=== PATIENT | female | born 1965 | race Caucasian/White ===

== ENCOUNTER → 2018-08-03 09:09 | Outpatient (CLI) | payer MEDICAID, SELFPAY ==
--- NOTE | 2018-08-03 09:16 | US_ITS ---
US abdomen limited History:Pain, right upper quadrant pain nausea and vomiting Ordering Physician:Miroslava Rodriguez APRN Patient Age: 53 years Comparison:None Findings: Pancreas:Poorly demonstrated due to overlying bowel gas. CT may better evaluate. Liver:Unremarkable. No obvious mass or abnormal fluid collection. No ductal dilatation Right Kidney:Unremarkable. Normal size and echogenicity. No hydronephrosis Gallbladder:No gallstones, gallbladder wall thickening, pericholecystic fluid, or biliary dilatation. Impression:Negative gallbladder/right upper quadrant ultrasound Poor visualization of the pancreas
== END ==
PROVIDERS: PCP Internal Medicine Adolescent Medicine; Visit Provider Nurse Practitioner Family
DX: R10.11 Right upper quadrant pain (principal)
CPT/HCPCS: 76705

== ENCOUNTER → 2020-12-07 14:09 | Outpatient (CLI) | payer OTHER, SELFPAY ==
--- NOTE | 2020-12-07 14:34 | MM_ITS ---
PROCEDURE INFORMATION: Exam: MG Bilateral Screening 3D Mammography Exam date and time: 12/07/2020 2:34 PM Age: 55 years old Clinical indication: Encounter for screening mammogram for malignant neoplasm of breast TECHNIQUE: Imaging protocol: Bilateral screening tomosynthesis and 2D mammography including computer-aided detection (CAD) when performed. COMPARISON: No relevant prior studies available. FINDINGS: MAMMOGRAPHY: Breast composition: The breast tissue is composed of scattered areas of fibroglandular density. Mass: None. Architectural distortion: None. Calcifications: No suspicious calcifications. Asymmetric density: None. Skin thickening: None. Axillary adenopathy: None. IMPRESSION: No mammographic evidence of malignancy. Annual screening is recommended unless otherwise clinically indicated. ASSESSMENT: BI-RADS Category 1: Negative
--- NOTE | 2020-12-07 14:34 | CT_ITS ---
PROCEDURE: CT LUNG SCREENING CLINICAL INDICATION: H/O NICOTINE DEPENDENCE COMPARISON: No exams were available for comparison TECHNIQUE: The exam was performed on a GE Light Speed [address] scanner using 2.90 mGy CTDI. A low dose helical CT CHEST was performed on a multi-detector scanner. All CT scans at the facility use one or more dose reduction, viz: automated exposure control, ma/kV adjustment per patient size (including targeted exams where dose is matched to indication, i.e. head), or iterative reconstruction technique. The LDCT was performed in a facility that meets the criteria for the screening program. Data regarding this exam was submitted to ACR which is an approved registry. The order for this exam indicates that it came as a result of a lung cancer screening counseling shard decision-making visit that included all the elements required of such a visit including smoking cessation. The radiologist interpreting this exam meets the CMS criteria for the LDCT lung cancer screening program. The exam is reported using the Lung-RADS classification scale and reported to the ACR registry. NOTE: This study was performed for the specific purposes of lung cancer screening and is not an alternative to diagnostic chest CT. RADIATION DOSE: CTDI vol(CT dose Index-volume) = 2.90mG DLP (Dose Length Product) = 96.38 mGcm FINDINGS: COPD changes atelectatic changes versus scarring in the right lower lobe centrally and inferiorly. OTHER FINDINGS: Coronary artery calcification. Mild thickening of the pericardium anteriorly measuring 10 mm in thickness. 2 cm left adrenal nodule consistent with adenoma IMPRESSION: Lung-RADS Category 1 Negative Follow-up: Continue annual screening with LDCT in 12 months Dictated by: Obey Bhandari MD 12/25/2020 19:35 Obey Bhandari MD in [place] 12/25/2020 19:35
== END ==
PROVIDERS: PCP Internal Medicine Adolescent Medicine; Visit Provider Nurse Practitioner Family
DX: Z87.891 Personal history of nicotine dependence (principal); Z12.2 Encounter for screening for malignant neoplasm of respiratory organs; Z12.31 Encounter for screening mammogram for malignant neoplasm of breast
CPT/HCPCS: 71271; 77063; 77067

== ENCOUNTER → 2020-12-17 09:40 | Outpatient (CLI) | payer OTHER, SELFPAY ==
[2020-12-17 10:11] LABS: Basophils # 0.1 K/mm3 (0-0.2); Basophils % 0.8 % (0.1-2.0); Eosinophils # 0.3 K/mm3 (0.0-0.4); Eosinophils % 2.9 % (0.1-12.0); Hematocrit 44.7 % (37.0-47.0); Hemoglobin 14.6 g/dL (12.2-16.2); Lymphocytes # 2.3 K/mm3 (0.7-4.5); Lymphocytes % 20.4 % (10-50); Mean Corpuscular HGB Conc 32.6 g/dL (31.8-35.4); Mean Corpuscular Hemoglobin 30.4 pg (27.0-31.2); Mean Corpuscular Volume 93.1 fl (81-99); Mean Platelet Volume 9.3 fl (7.4-10.4); Monocytes # 0.8 K/mm3 (0.1-1.0); Monocytes % 6.7 % (1.7-9.3); Neutrophils # 7.9 K/mm3 (1.8-7.8); Neutrophils % 69.3 % (37.0-80.0); Platelet Count 299 K/mm3 (142-424); Red Cell Distribution Width 14.4 % (11.5-17.5); White Blood Count 11.4 K/mm3 (4.8-10.8)
[2020-12-17 10:25] LABS: Hemoglobin A1C 5.8 % (4.0-6.0)
[2020-12-17 10:40] LABS: Chloride 102 mmol/L (98-107); Sodium 139 mmol/L (136-145)
[2020-12-17 10:41] LABS: Potassium 4.1 mmoL/L (3.5-5.1)
[2020-12-17 10:43] LABS: Alanine Aminotransferase 12 U/L (12-78); Albumin/Globulin Ratio 1.5 (1.1-1.8); Alkaline Phosphatase 96 U/L (38-126); Anion Gap 10.1 mEq/L (5-15); Aspartate Amino Transferase 20 U/L (14-36); Bilirubin,Total 0.3 mg/dl (0.2-1.3); Blood Urea Nitrogen 8 mg/dl (7-17); Calcium 9.8 mg/dl (8.4-10.2); Carbon Dioxide 31 mmol/L (22.0-30.0); Chol/HDL Ratio 4.7 (1-3.5); Cholesterol 300 mg/dl (140-200); Estimated Glomerular Filt Rate 65 ml/min (>60); GFR (African American) 79 ML/MIN (>60); Globulin 2.7 g/dL (1.3-3.2); Glucose 115 mg/dl (74-100); HDL Cholesterol 64 mg/dl (40-60); Total Protein,Serum 6.7 g/dl (6.3-8.2); Triglycerides 140 mg/dl (30-150); VLDL Cholesterol 28 mg/dL (0-40)
[2020-12-17 10:53] LABS: Direct LDL Cholesterol 195.83 mg/dL (100-129)
[2020-12-17 11:31] LABS: Vitamin B12 431 pg/mL (239-931)
[2020-12-19 12:32] LABS: Free T4 (Free Thyroxine) 0.52 ng/dl (0.78-2.19)
== END ==
PROVIDERS: Nurse Practitioner Family; Visit Provider Surgery
DX: Z01.812 Encounter for preprocedural laboratory examination (principal); Z11.52 Encounter for screening for COVID-19; I10 Essential (primary) hypertension; E78.2 Mixed hyperlipidemia; R73.9 Hyperglycemia, unspecified; E03.9 Hypothyroidism, unspecified; E53.8 Deficiency of other specified B group vitamins; E55.9 Vitamin D deficiency, unspecified
CPT/HCPCS: 36415; 80053; 80061; 82306; 82607; 83036; 84439; 84443; 85025; C9803; U0003; U0005

== ENCOUNTER → 2022-05-22 14:51 | Outpatient (CLI) | payer OTHER, SELFPAY ==
--- NOTE | 2022-05-22 14:56 | CT_ITS ---
FINAL REPORT TECHNIQUE: Axial CT images of the chest were obtained without contrast. Low-dose protocol was utilized. This study was performed with techniques to keep radiation doses as low as reasonably achievable (ALARA). Individualized dose reduction techniques using automated exposure control or adjustment of mA and/or kV according to the patient's size were employed. CLINICAL HISTORY: currently smokes 1/2 pk per day x 29 yrs COMPARISON: 12/07/2020 FINDINGS: CT CHEST WITHOUT, LOW DOSE SCREENING CT Di Vol: 2.90 mGy DLP: 102.90 mGy*cm There is no axillary, mediastinal, or hilar lymphadenopathy. The heart size is normal. There is no pleural or pericardial effusion. The lung windows show no suspicious mass or nodule. The there is linear scarring in the right lung base. The lungs are otherwise clear. Limited images of the upper abdomen demonstrate a stable 2 cm hypodense left adrenal nodule. IMPRESSION: LR Category 1S: 12 month follow-up low-dose chest CT is recommended. Modifier S: Left adrenal nodule, stable and favor adenoma. Reviewed, Interpreted and Dictated by Ami Alaniz MD Transcribed by Alyson Ramsey Authenticated and [facility]
--- NOTE | 2022-05-22 14:56 | MM_ITS ---
PROCEDURE INFORMATION: Exam: MG Bilateral Screening 3D Mammography Exam date and time: 05/22/2022 3:07 PM Age: 57 years old Clinical indication: Screening mammogram TECHNIQUE: Imaging protocol: Bilateral Screening tomosynthesis and 2D mammography including computer-aided detection (CAD) when performed. COMPARISON: 1. MG MM DIG SCREENING MAMM BI W/CAD 12/07/2020 2:58 PM 2. MG DMSB DIGITAL MAMM-SCREEN BILATERAL 04/17/2011 1:52 PM FINDINGS: MAMMOGRAPHY: Breast composition: There are scattered areas of fibroglandular density. Mass: None. Architectural distortion: No new or suspicious architectural distortion. Calcifications: No new or suspicious calcifications are present Asymmetric density: No new or suspicious asymmetric density is present Skin thickening: None. Axillary adenopathy: None. IMPRESSION: No mammographic evidence of malignancy. Recommend annual screening mammography unless otherwise clinically indicated. ASSESSMENT: BI-RADS category 1: Negative
== END ==
PROVIDERS: PCP Internal Medicine Adolescent Medicine; Visit Provider Nurse Practitioner Family
DX: Z87.891 Personal history of nicotine dependence (principal); Z12.2 Encounter for screening for malignant neoplasm of respiratory organs; Z12.31 Encounter for screening mammogram for malignant neoplasm of breast
CPT/HCPCS: 71271; 77063; 77067

== ENCOUNTER → 2022-07-23 11:42 | Outpatient (CLI) | payer OTHER, SELFPAY ==
--- NOTE | 2022-07-23 11:49 | XR_ITS ---
FINAL REPORT CLINICAL HISTORY: Rt foot pain COMPARISON: None FINDINGS: RIGHT FOOT 3 views of the right foot were obtained. There is no acute fracture or dislocation. Visualized joint spaces are normally aligned. Soft tissues are unremarkable. IMPRESSION: No acute bony abnormality. Reviewed, Interpreted and Dictated by Daniel Escalante MD Transcribed by Samantha Domínguez Authenticated and [facility]
--- NOTE | 2022-07-23 11:49 | XR_ITS ---
FINAL REPORT CLINICAL HISTORY: Rt ankle pain COMPARISON: None FINDINGS: RIGHT ANKLE 3 views of the right ankle were obtained. There is no acute fracture or dislocation. The mortise is intact. Visualized joint spaces are normally aligned. Soft tissues are unremarkable. IMPRESSION: No acute bony abnormality. Reviewed, Interpreted and Dictated by Daniel Escalante MD Transcribed by Samantha Domínguez Authenticated and [facility]
== END ==
PROVIDERS: PCP Nurse Practitioner Family; Visit Provider Nurse Practitioner Family
DX: M79.671 Pain in right foot (principal); M25.571 Pain in right ankle and joints of right foot; M25.371 Other instability, right ankle
CPT/HCPCS: 73610; 73630

== ENCOUNTER → 2022-11-11 12:19 | Outpatient (CLI) | payer OTHER, SELFPAY ==
[2022-11-11 13:19] LABS: Chloride 107 mmol/L (98-107); Sodium 139 mmol/L (136-145)
[2022-11-11 13:20] LABS: Potassium 4.2 mmoL/L (3.5-5.1)
[2022-11-11 13:23] LABS: Anion Gap 11.2 mEq/L (5-15); Blood Urea Nitrogen 19 mg/dl (7-17); Calcium 9.4 mg/dl (8.4-10.2); Carbon Dioxide 25 mmol/L (22.0-30.0); Estimated Glomerular Filt Rate 57 ml/min (>60); GFR (African American) 69 ML/MIN (>60); Glucose 106 mg/dl (74-100)
== END ==
PROVIDERS: PCP Internal Medicine Adolescent Medicine; Visit Provider Specialist
DX: G43.909 Migraine, unspecified, not intractable, without status migrainosus (principal); I63.9 Cerebral infarction, unspecified; Z86.39 Personal history of other endocrine, nutritional and metabolic disease; Z86.73 Personal history of transient ischemic attack (TIA), and cerebral infarction without residual deficits
CPT/HCPCS: 36415; 80048

== ENCOUNTER → 2022-11-14 12:51 | Outpatient (CLI) | payer OTHER, SELFPAY ==
--- NOTE | 2022-11-14 12:51 | MR_ITS ---
FINAL REPORT CLINICAL HISTORY: MIGRAINE off balance , dizziness, hx of stroke 13 ml prohance given FINDINGS: Multiplanar MR imaging of the brain was performed without and with contrast. There is abnormal signal in the anterior/inferior right occipital lobe which may be due to sequela of old infarct. There is no evidence of intracranial hemorrhage or mass. No abnormal extra-axial fluid collection is seen. The ventricular size is within normal limits. There is no evidence of shift of the midline structures. No area of abnormal restricted diffusion is identified. No abnormal contrast enhancement is seen. Normal major vessel vascular flow voids are noted. IMPRESSION: Encephalomalacia in the anterior/inferior right occipital lobe, may be due to sequela of old infarct. Reviewed, Interpreted and Dictated by Daniel Escalante MD Transcribed by Jodi Hughes Authenticated and [facility]
== END ==
PROVIDERS: PCP Nurse Practitioner Family; Visit Provider Specialist
DX: G43.909 Migraine, unspecified, not intractable, without status migrainosus (principal); Z86.73 Personal history of transient ischemic attack (TIA), and cerebral infarction without residual deficits
CPT/HCPCS: 70553; A9576

== ENCOUNTER 2023-01-06 14:00 | Outpatient (RCR) | payer OTHER, SELFPAY | END 2023-01-06 15:10 | disposition home or self-care (01) | LOC: OT 14:00 | PROVIDERS: Visit Provider Specialist | DX: G56.03 Carpal tunnel syndrome, bilateral upper limbs (principal); Z86.73 Personal history of transient ischemic attack (TIA), and cerebral infarction without residual deficits | CPT/HCPCS: 97010; 97014; 97035; 97110; 97140; 97164; 97165; 97530; G0283 ==

== ENCOUNTER 2023-01-08 11:00 | Outpatient (RCR) | payer OTHER, SELFPAY ==
--- NOTE | 2022-11-11 15:26 | HMH.PTOPEV ---
PT Outpatient Evaluation Rehab PT Outpatient Evaluation Start: 11/11/22 14:09 Freq: Status: Active Protocol: Document 11/11/22 15:08 PHORNE (Rec: 11/11/22 15:26 PHORNE [id number]) E-signed By Kendell Lawler, PT Outpatient Therapy Subjective History Subjective History This is the initial PT eval for Alayna eLe, 57 yowf who presents with c/o increased symptoms of vertigo, specifically turning head to the left or laying on her left side, and decreased dynamic balance, specifically with stairs, x ~ 6 yrs after CVA. Neurologist note reports likely posterior R side CVA with deficits in the occipital lobe among other areas. She does suffer from visual field cut since her CVA, effecting the L eye lateral vision most significantly. She reports ascending/descending stairs is extremely difficult and she has to hold on to something or someone or I can't do it. She reports the turning to her head to the L side and laying on her L side produce a quick onset vertigo sensation last ~ 15 sec. During Enrike-Hallpike testing she exhibits upbeating ipsilateral torsional nystagmus with L side testing. She has PMH of CVA, HTN, hypothyroid, histoplasmosis, basal cell CA, hx of narcotic abuse, migraines. New diagnosis of cancer in past 12 Yes months? Chief Complaint Other Symptoms Relieved By Rest/Positioning Symptoms Aggravated By Physical Activity,Walking Prior Functional Limitations None Current Functional Limitations Walking,Stairs Level of pain today (0-10) 0 Balance Eval Nystagmus Nystagmus Presence Bilateral Nystagmus Description Geotropic,Left Torsion,Latency - Immediate Oculomotor Gaze Oculomotor Gaze Nml: Vergence Smooth Pursuit Cover/Uncover Abn: Saccades VOR Cancellation Cross Cover Outpatient Therapy Assessment Impairments Problems/Impairmments Impaired Stair Climbing, Impaired Incline Stepping, Impaired Stepping on Uneven Surface,Impaired Balance, Impaired Self Care/Self Management Prognosis Rehab Potential Good Clinical Impression Consistent with Diagnosis Yes Short Term Goals Number of Weeks 2 Improve Ability to Climb Stairs Yes: reciprocally with rail Improve Balance Yes: No dizziness with head turning during standing. Patient to be Ind w/ HEP Yes Jail Goals Number of Weeks 4 Improve Ability to Climb Stairs Yes: reciprocally without LOB Improve Balance Yes: No dizziness with head turning during gait. Improve Self Care/Self Management Yes: No nystagmus with Enrike- Hallpike testing Outpatient Therapy Plan of Care Treatment Plan May Include Therapeutic Exercise Including Home Yes Exercise Program Manual Therapy Techniques Yes Neuromuscular Re-education Yes Therapeutic Activities to Return to Yes Previous Functional/Work Level Gait Training Yes ADL/Self Care Education Yes Eval/Re-Eval Yes Frequency Times per week 2 Duration Number of Weeks 4 Addendums This patient is a candidate for social No or vocational rehab? Patient/Guardian verbally acknowledges Yes understanding of treatment program and consents to further treatment? Patient/Guardian verbally acknowledges Yes understanding of diagnosis, prognosis and goals for treatment? Eval Complexity PT Charges 27509 - High Complexity Shoulder/Elbow Eval Shoulder Objective Measurements Elbow Objective Measurements PHYSICIAN CERTIFICATION: I certify the specified therapy services for Alayna Lee are required, authorized, and reviewed every 30 days.
--- NOTE | 2022-12-10 10:11 | HMH.RHREAS ---
Rehab Reassessment Rehab OP Re-assessment Start: 11/11/22 14:09 Freq: Status: Active Protocol: Document 12/10/22 09:43 PHORNE (Rec: 12/10/22 10:10 PHORNE [id number]) E-signed By Kendell Lawler, PT Rehab Re-assessment Subjective Subjective Pt reports, I don't get dizzy when I turn my head to the left anymore. I still just feel really off balance a lot though. Objective Objective Notes Enrike-Hallpike: L side positive upbeating and ipsilateral torsional nystagmus with delayed onset and lasting ~ 15 sec with associated pt reports of increased dizziness . Stairs: Pt remains unable to perform reciprocal ascending/ descending of stairs due to feeligns of poor balance. Assessment Progress Assessment Slower Than Expected Assessment Notes Pt has shown significant improvements in overall feelings of vertigo/dizziness. She does continues to suffer from poor dynamic standing balance. She continues to need skilled intervention to return to prior level of function. Patient goals met none Goals Not Met ST,2 LT,2,3 Plan Plan Continue per initial POC. Frequency of Therapy 2 x/wk Duration of therapy 4 wks Time and Billing Re-Eval Time 14 Re-Eval Billing Units 1 PHYSICIAN CERTIFICATION: I certify the specified therapy services for Alayna Lee are required, authorized, and reviewed every 30 days.
== END 2023-01-08 12:00 | disposition home or self-care (01) ==
LOC: PT 11:00
PROVIDERS: PCP Nurse Practitioner Family; Visit Provider Specialist
DX: R42 Dizziness and giddiness (principal); G43.909 Migraine, unspecified, not intractable, without status migrainosus; Z86.73 Personal history of transient ischemic attack (TIA), and cerebral infarction without residual deficits
CPT/HCPCS: 97112; 97163; 97164; 97530; 97535

== ENCOUNTER → 2023-01-21 13:47 | Outpatient (CLI) | payer OTHER, SELFPAY ==
--- OUTSIDE RECORDS SUMMARY | 2023-01-21 13:50 | XMS_ITS | Patient Health Record ---
Author Name Unknown Organization [facility] Address [address] [place] [address] Care Team Providers Care Wellness Program Manager Name Role Phone Surinderkassy Kendell Primary Care Provider [phone] Miroslava Rodriguez Unavailable [phone] ALLERGIES Allergen (clinical drug ingredient) Drug/Non Drug Allergy documented on EMR Reaction Allergy Type Onset Date Status PCN (uncoded) Unknown Allergy Active Triptans (uncoded) hx CVA Allergy A ctive RESULTS Component Value Reference Range Notes Mammogram : Bilateral Reviewed date:05/27/2022 12:40:22 PM Interpretation: Performing Lab: Notes/Report: CT Scan : Chest, Lung Cancer Screening Reviewed date:05/27/2022 08:28:04 AM Interpretation: Performing Lab: Notes/Report: VITAMIN D,25-OH,TOTAL,IA (17 306) Reviewed date:07/18/2022 09:37:41 AM Interpretation: Performing Lab:[facility], [facility] [id number] [id number] [place] Notes/Report: NON-FASTING; NON-FASTING; NON-FASTING; NON-FASTING; NON-FAST FASTING:YES FASTING: YES VITAMIN D,25-OH,TOTAL,IA 58 30-100 ng/mL Vitamin D Status 25-OH Vitamin D: Deficiency: <20 ng/mL Insufficiency: 20 - 29 ng/mL Optimal: > or = 30 ng/mL For 25-OH Vitamin D testing on patients on D2-supplementation and patients for whom quantitation of D2 and D3 fractions is required, the [place](TM) 25-OH VIT D, (D2,D3), LC/MS/MS is recommended: order code 83864 (patients >2yrs).
[2023-01-21 14:36] LABS: Basophils % 0.4 % (0.1-2.0); Eosinophils # 0.1 K/mm3 (0.0-0.4); Eosinophils % 2.2 % (0.1-12.0); Hematocrit 40.5 % (37.0-47.0); Hemoglobin 13.3 g/dL (12.2-16.2); Lymphocytes # 1.5 K/mm3 (0.7-4.5); Lymphocytes % 30.3 % (10-50); Mean Corpuscular HGB Conc 32.8 g/dL (31.8-35.4); Mean Corpuscular Hemoglobin 29.8 pg (27.0-31.2); Mean Corpuscular Volume 90.9 fl (81-99); Mean Platelet Volume 9.3 fl (7.4-10.4); Monocytes # 0.3 K/mm3 (0.1-1.0); Monocytes % 6.9 % (1.7-9.3); Neutrophils # 2.9 K/mm3 (1.8-7.8); Neutrophils % 60.2 % (37.0-80.0); Platelet Count 183 K/mm3 (142-424); Red Blood Count 4.45 M/mm3 (4.20-5.40); Red Cell Distribution Width 13.8 % (11.5-17.5); White Blood Count 4.8 K/mm3 (4.8-10.8)
[2023-01-21 14:54] LABS: Alanine Aminotransferase 32 U/L (12-78); Albumin Level 4.1 g/dl (3.5-5.0); Albumin/Globulin Ratio 1.8 (1.1-1.8); Alkaline Phosphatase 101 U/L (38-126); Aspartate Amino Transferase 36 U/L (14-36); Bilirubin,Total 0.3 mg/dl (0.2-1.3); Blood Urea Nitrogen 11 mg/dl (7-17); Calcium 8.7 mg/dl (8.4-10.2); Carbon Dioxide 26 mmol/L (22.0-30.0); Chloride 102 mmol/L (98-107); Cholesterol 158 mg/dl (140-200); Estimated Glomerular Filt Rate 51 ml/min (>60); GFR (African American) 62 ML/MIN (>60); Globulin 2.3 g/dL (1.3-3.2); Glucose 131 mg/dl (74-100); HDL Cholesterol 53 mg/dl (40-60); Sodium 136 mmol/L (136-145); Total Protein,Serum 6.4 g/dl (6.3-8.2); Triglycerides 195 mg/dl (30-150); VLDL Cholesterol 39 mg/dL (0-40)
[2023-01-21 15:05] LABS: Direct LDL Cholesterol 74.68 mg/dL (100-129)
[2023-01-21 15:11] LABS: 25-OH Vitamin D, Total 87.5 ng/mL (30-100)
[2023-01-21 15:12] LABS: Free T4 (Free Thyroxine) 1.48 ng/dl (0.78-2.19)
[2023-01-21 15:24] LABS: Thyroid Stimulating Hormone 0.03 uIU/mL (0.465-4.68)
[2023-01-21 15:43] LABS: Vitamin B12 967 pg/mL (239-931)
== END ==
PROVIDERS: PCP Nurse Practitioner Family; Visit Provider Nurse Practitioner Family
DX: E03.9 Hypothyroidism, unspecified (principal); E53.8 Deficiency of other specified B group vitamins; E55.9 Vitamin D deficiency, unspecified; E78.2 Mixed hyperlipidemia; I10 Essential (primary) hypertension; Z68.26 Body mass index [BMI] 26.0-26.9, adult; Z72.0 Tobacco use
CPT/HCPCS: 36415; 80053; 80061; 82306; 82607; 84439; 84443; 85025

== ENCOUNTER → 2023-02-25 10:16 | Outpatient (CLI) | payer OTHER, SELFPAY ==
--- OUTSIDE RECORDS SUMMARY | 2023-02-25 10:19 | XMS_ITS | Patient Health Record ---
Author Name Unknown Organization [facility] Address [address] [place] [address] Care Team Providers Care 3D Designer Name Role Phone Kendell Kelsey Primary Care Provider Miroslava Rodriguez Unavailable [phone] ALLERGIES Allergen (clinical drug ingredient) Drug/Non Drug Allergy documented on EMR Reaction Allergy Type Onset Date Status PCN (uncoded) Unknown Allergy Active Triptans (uncoded) hx CVA Allergy A ctive RESULTS Component Value Reference Range Notes X ray : Ankle, Right Reviewed date:07/25/2022 01:44:39 PM Interpretation: Performing Lab: Notes/Report: X ray : Foot, Right Reviewed date:07/25/2022 01:44:22 PM Interpretation: Performing Lab: Notes/Report: Mammogram : Bilateral Reviewed date:05/27/2022 12:40:22 PM Interpretation: Performing Lab: Notes/Report: CT Scan : Chest, Lung Cancer Screening Reviewed date:05/27/2022 08:28:04 AM Interpretation: Performing Lab: Notes/Report: M-Complete Blood Count Auto Diff Reviewed date:01/23/2023 11:38:39 AM Interpretation: Performing Lab: Notes/Report: WBC 4.8 4.8-10.8 K/mm3 RBC 4.45 4.20-5.40 M/mm3 HGB 13.3 12.2-16.2 g/dL HCT 40.5 37.0-47.0 % MCV 90.9 81-99 fl MCH 29.8 27.0-31.2 pg MCHC 32.8 31.8-35.4 g/dL RDW 13.8 11.5-17.5 % PLT 183 142-424 K/mm3 MPV 9.3 7.4-10.4 fl NE% 60.2 37.0-80.0 % LY% 30.3 10-50 % MO% 6.9 1.7-9.3 % EO% 2.2 0.1-12.0 % BA% 0.4 0.1-2.0 % NE# 2.9 1.8-7.8 K/mm3 LY# 1.5 0.7-4.5 K/mm3 MO# 0.3 0.1-1.0 K/mm3 EO# 0.1 0.0-0.4 K/mm3 BA# 0.0 0-0.2 K/mm3 M-Comprehensive Metabolic Pa gabino Reviewed date:01/23/2023 11:38:39 AM Interpretation: Performing Lab: Notes/Report: NA 136 136-145 mmol/L K 4.0 3.5-5.1 mmoL/L CL 102 98-107 mmol/L CO2 26 22.0-30.0 mmol/L GAP 12.0 5-15 mEq/L BUN 11 7-17 mg/dl CREATT 1.10 0.52-1.04 mg/dl GFRAA 62 >60 ML/MIN EGFR 51 >60 ml/min GLU 131 74-100 mg/dl CA 8.7 8.4-10.2 mg/dl BILIT 0.3 0.2-1.3 mg/dl AST 36 14-36 U/L ALT 32 12-78 U/L TP 6.4 6.3-8.2 g/dl ALB 4.1 3.5-5.0 g/dl GLOB 2.3 1.3-3.2 g/dL AGRATIO 1.8 1.1-1.8 ALP 101 38-126 U/L M-Lipid Panel Reviewed date:01/23/2023 11:38:39 AM Interpretation: Performing Lab: Notes/Report: Patient Fasting? N TRIG 195 30-150 mg/dl CHOL 158 140-200 mg/dl DLDL 74.68 100-129 mg/dL VLDL 39 0-40 mg/dL HDL 53 40-60 mg/dl CHLHDL 3.0 1-3.5 M-Free T4 (Free Thyroxine) Reviewed date:01/23/2023 11:38:39 AM Interpretation: Performing Lab: Notes/Report: T4F 1.48 0.78-2.19 ng/dl M-Thyroid Stimulating Hormon e Reviewed date:01/23/2023 11:38:39 AM Interpretation: Performing Lab: Notes/Report: TSH 0.03 0.465-4.68 uIU/mL H-TVITD Reviewed date:01/23/2023 11:38:39 AM Interpretation: Performing Lab: Notes/Report: TVITD 87.5 30-100 ng/mL Deficient <20 ng/mL Insufficient 20-30 ng/mL Sufficient 30-100 ng/mL Potential Toxicity >100 ng/mL H-VITB12 Reviewed date:01/23/2023 11:38:39 AM Interpretation: Performing Lab: Notes/Report: VITB12 967 239-931 pg/mL TSH W/REFLEX TO FT4 (31053) Reviewed date:10/06/2022 09:12:29 AM Interpretation: Performing Lab:[facility] [address], i3 [id number] [place] Notes/Report: NON-FASTING; NON-FASTING; NON-FASTING; NON-FASTING NON-FASTING; NON-FASTING; NON-FASTING; NON-FASTING TSH W/REFLEX TO FT4 0.02 0.40-4.50 mIU/L T4, FREE 1.4 0.8-1.8 ng/dL VITAMIN B12 (927) Reviewed date:10/06/2022 09:12:29 AM Interpretation: Performing Lab:[facility] [address], i3 [id number] [place] Notes/Report: NON-FASTING; NON-FASTING; NON-FASTING; NON-FASTING VITAMIN B12 [phone] pg/mL CBC (INCLUDES DIFF/PLT) (639 9) Reviewed date:10/06/2022 09:12:29 AM Interpretation: Performing Lab:[facility] [address], i[address] membraneKsmrIM[address] [place] Notes/Report: NON-FASTING; NON-FASTING; NON-FASTING; NON-FASTING WHITE BLOOD CELL COUNT 4.1 3.8-10.8 Thousand/ uL RED BLOOD CELL COUNT 4.44 3.80-5.10 Million/uL HEMOGLOBIN 13.6 11.7-15.5 g/dL HEMATOCRIT 40.6 35.0-45.0 % MCV 91.4 80.0-100.0 fL MCH 30.6 27.0-33.0 pg MCHC 33.5 32.0-36.0 g/dL RDW 12.2 11.0-15.0 % PLATELET COUNT 173 140-400 Thousand/uL MPV 10.8 7.5-12.5 fL ABSOLUTE NEUTROPHILS 2382 8041-1966 cells/uL ABSOLUTE LYMPHOCYTES 4904 735-1404 cells/uL ABSOLUTE MONOCYTES 377 200-950 cells/uL ABSOLUTE EOSINOPHILS 0 15-500 cells/uL ABSOLUTE BASOPHILS 29 0-200 cells/uL NEUTROPHILS 58.1 LYMPHOCYTES 32.0 MONOCYTES 9.2 EOSINOPHILS 0.0 BASOPHILS 0.7 BASIC METABOLIC PANEL (55440 ) Reviewed date:10/06/2022 09:12:29 AM Interpretation: Performing Lab:[facility] [employer] [facility] [address], [place] GroupQnsyBP[address] [place] Notes/Report: NON-FASTING; NON-FASTING; NON-FASTING; NON-FASTING GLUCOSE 116 65-99 mg/dL Fasting reference interval For someone without known diabetes, a glucose value between 100 and 125 mg/dL is consistent with prediabetes and should be confirmed with a follow-up test. UREA NITROGEN (BUN) 17 7-25 mg/dL CREATININE 1.17 0.50-1.03 mg/dL EGFR 55 > OR = 60 mL/min/1.73m2 BUN/CREATININE RATIO 15 6-22 (calc) SODIUM 138 135-146 mmol/L POTASSIUM 4.7 3.5-5.3 mmol/L CHLORIDE 104 98-110 mmol/L CARBON DIOXIDE 27 20-32 mmol/L CALCIUM 10.0 8.6-10.4 mg/dL VITAMIN D,25-OH,TOTAL,IA (17 306) Reviewed date:07/18/2022 09:37:41 AM Interpretation: Performing Lab:[facility] [employer] [address], [place] GroupXaxaWL[address] [place] Notes/Report: NON-FASTING; NON-FASTING; NON-FASTING; NON-FASTING; NON-FAST FASTING:YES FASTING: YES VITAMIN D,25-OH,TOTAL,IA 58 30-100 ng/mL Vitamin D Status 25-OH Vitamin D: Deficiency: <20 ng/mL Insufficiency: 20 - 29 ng/mL Optimal: > or = 30 ng/mL For 25-OH Vitamin D testing on patients on D2-supplementation and patients for whom quantitation of D2 and D3 fractions is required, the QuestAssureD(TM) 25-OH VIT D, (D2,D3), LC/MS/MS is recommended: order code 51103 (patients >2yrs). See Note 1 Note 1 For additional information, please refer to http://education.[employer].First Solar/faq/UAQ565 (This link is being provided for informational/ educational purposes only.) TSH W/REFLEX TO FT4 (20630) Reviewed date:07/18/2022 09:37:41 AM Interpretation: Performing Lab:[facility] [address] [facility], [place] [id number] [place] Notes/Report: NON-FASTING; NON-FASTING; NON-FASTING; NON-FASTING; NON-FAST FASTING:YES FASTING: YES NON-FASTING; NON-FASTING; NON-FASTING; NON-FASTING; NON-FAST FASTING:YES FASTING: YES TSH W/REFLEX TO FT4 0.02 0.40-4.50 mIU/L T4, FREE 1.5 0.8-1.8 ng/dL HEMOGLOBIN A1c (496) Reviewed date:07/18/2022 09:37:41 AM Interpretation: Performing Lab:[facility] [address], i3 [id number] [place] Notes/Report: NON-FASTING; NON-FASTING; NON-FASTING; NON-FASTING; NON-FAST FASTING:YES FASTING: YES HEMOGLOBIN A1c 5.3 <5.7 % of total Hgb For the purpose of screening for the presence of diabetes: <5.7% Consistent with the absence of diabetes 5.7-6.4% Consistent with increased risk for diabetes (prediabetes) > or =6.5% Consistent with diabetes This assay result is consistent with a decreased risk of diabetes. Currently, no consensus exists regarding use of hemoglobin A1c for diagnosis of diabetes in children. According to [place] Diabetes Association (ADA) guidelines, hemoglobin A1c <7.0% represents optimal control in non- diabetic patients. Different metrics may apply to specific patient populations. Standards of Medical Care in Diabetes(ADA). CBC (INCLUDES DIFF/PLT) (639 9) Reviewed date:07/18/2022 09:37:41 AM Interpretation: Performing Lab:[facility] [employer] [address], [place] [id number] [place] Notes/Report: NON-FASTING; NON-FASTING; NON-FASTING; NON-FASTING; NON-FAST FASTING:YES FASTING: YES WHITE BLOOD CELL COUNT 5.1 3.8-10.8 Thousand/ uL RED BLOOD CELL COUNT 4.16 3.80-5.10 Million/uL HEMOGLOBIN 12.2 11.7-15.5 g/dL HEMATOCRIT 37.2 35.0-45.0 % MCV 89.4 80.0-100.0 fL MCH 29.3 27.0-33.0 pg MCHC 32.8 32.0-36.0 g/dL RDW 14.4 11.0-15.0 % PLATELET COUNT 174 140-400 Thousand/uL MPV 11.7 7.5-12.5 fL ABSOLUTE NEUTROPHILS 3233 9689-1380 cells/uL ABSOLUTE LYMPHOCYTES 7955 908-9895 cells/uL ABSOLUTE MONOCYTES 352 200-950 cells/uL ABSOLUTE EOSINOPHILS 0 15-500 cells/uL ABSOLUTE BASOPHILS 20 0-200 cells/uL NEUTROPHILS 63.4 LYMPHOCYTES 29.3 MONOCYTES 6.9 EOSINOPHILS 0.0 BASOPHILS 0.4 COMPREHENSIVE METABOLIC PANE L (75553) Reviewed date:07/18/2022 09:37:41 AM Interpretation: Performing Lab:[facility] [employer] [address], [place] LaxdNX[address] [place] Notes/Report: NON-FASTING; NON-FASTING; NON-FASTING; NON-FASTING; NON-FAST FASTING:YES FASTING: YES GLUCOSE 101 65-99 mg/dL Fasting reference interval For someone without known diabetes, a glucose value between 100 and 125 mg/dL is consistent with prediabetes and should be confirmed with a follow-up test. UREA NITROGEN (BUN) 12 7-25 mg/dL CREATININE 1.16 0.50-1.03 mg/dL EGFR 55 > OR = 60 mL/min/1.73m2 The eGFR is based on the CKD-EPI 2020 equation. To calculate the new eGFR from a previous Creatinine or Cystatin C result, go to https://www.kidney.org/pro fessionals/ kdoqi/gfr%5Fcalculator BUN/CREATININE RATIO 10 6-22 (calc) SODIUM 139 135-146 mmol/L POTASSIUM 4.5 3.5-5.3 mmol/L CHLORIDE 108 98-110 mmol/L CARBON DIOXIDE 25 20-32 mmol/L CALCIUM 10.0 8.6-10.4 mg/dL PROTEIN, TOTAL 6.4 6.1-8.1 g/dL ALBUMIN 4.3 3.6-5.1 g/dL GLOBULIN 2.1 1.9-3.7 g/dL (calc) ALBUMIN/GLOBULIN RATIO 2.0 1.0-2.5 (calc) BILIRUBIN, TOTAL 0.3 0.2-1.2 mg/dL ALKALINE PHOSPHATASE 81 37-153 U/L AST 18 10-35 U/L ALT 20 6-29 U/L LIPID PANEL, STANDARD (7600) Reviewed date:07/18/2022 09:37:41 AM Interpretation: Performing Lab:[facility] [place], [facility] HospitalSnctUU[address] [place] Notes/Report: NON-FASTING; NON-FASTING; NON-FASTING; NON-FASTING; NON-FAST FASTING:YES FASTING: YES CHOLESTEROL, TOTAL 149 <200 mg/dL HDL CHOLESTEROL 54 > OR = 50 mg/dL TRIGLYCERIDES 107 <150 mg/dL LDL-CHOLESTEROL 76 Reference range: <100 Desirable range <100 mg/dL for primary prevention; <70 mg/dL for patients with CHD or diabetic patients with > or = 2 CHD risk factors. LDL-C is now calculated using the Rosina calculation, which is a validated novel method providing better accuracy than the Friedewald equation in the estimation of LDL-C. Earl FLEMING et al. RAAD. 2013;310(19): 6256-0102 (http://Selventa.Bitmenu/faq/YDX915) CHOL/HDLC RATIO 2.8 <5.0 (calc) NON HDL CHOLESTEROL 95 <130 mg/dL (calc) For patients with diabetes plus 1 major ASCVD risk factor, treating to a non-HDL-C goal of <100 mg/dL (LDL-C of <70 mg/dL) is considered a therapeutic option. REASON FOR REFERRAL Reason screening CT chest, Mammogram Derm in [place] for facial skin lesion Referral Organization [facility] Referring Provider First Name Miroslava Referring Provider Last Name Jennifer Referring Provider [facility] Notes Deja Lau 03/26 12:00:51 PM EST > , Deja Lau 04/16/2022 12:18:26 PM EST > pt informed Referral Priority Routine Referral Appointment Date 04/25/2022 Reason medical records for Norm Canupp Referral Organization [facility] MENDY DIAZ Referring Provider First Name Kendell Referring Provider Last Name Laure Referring Provider [facility] Internal edicine Referral Priority Routine Reason Podiatry at [facility] Diagnosis 1 Pain in right ankle and joints of right foot (M25.571) Referral Organization [facility] Referring Provider First Name Miroslava Referring Provider Last Name Jennifer Referring Provider [facility] Notes Deja Lau 11:59:15 AM > faxed and they will call pt Referral Priority Routine Reason Dr Villavicencio for migrain es and stroke history Diagnosis 1 Episodic migraine (G 43.909) Referral Organization [facility] Referring Provider First Name Miroslava Referring Provider Last Name Jennifer Referring Provider [facility] Notes Deja Lau 12/2022 02:42:34 PM > faxed and they will call pt to schedule, Deja Lau 10/07/2022 11:10:25 AM > pt notified Referral Priority Routine Reason 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 Norm Canupp Referral Organization [facility] MENDY DIAZ Referring Provider First Name Kendell Referring Provider Last Name Laure Referring Provider [facility] Internal edicine Referral Priority Routine Reason medical records for disability determination Referral Organization [facility]IAZ Referring Provider First Name Kendell Referring Provider Last Name Laure Referring Provider [facility] Internal edicine Referral Priority Routine MEDICATIONS Medication SIG (Take, Route, Frequency, Duration) Notes Start Date End Date Status Losartan Potassium 100 mg 1 tab(s) orall y once a day for 30 days Active atenolol 50 mg 1 tab(s) orally once a day for 30 days Active Ondansetron Hydrochloride 4 mg 1 tab(s) orally every 6 hours PRN for 4 days Active Cyclobenzaprine Hydrochloride 5 mg 1 tab(s) orally once a day for 30 days Active ibuprofen 600 mg 1 tab(s) orally ever y 6 hours as needed for pain for 30 days 07/09/2022 Active Ajovy vfrm 225 mg/1.5 mL as directed sub cutaneously 3 injection every 3 months Activ e Cymbalta 30 mg 1 cap(s) orally once a day with 60mg dose for 30 day(s) Active hydrOXYzine hydrochloride 25 mg 1 tab(s) orally twice daily and at bedtime for 30 days Active omeprazole 40 mg 1 cap(s) orally once a day for 30 day(s) Active Cymbalta 60 mg 1 cap(s) orally once a day for 30 day(s) Active levothyroxine 137 mcg (0.137 mg) 1 tab(s) orally once a day for 30 days Active Vivitrol 380 mg as directed intramuscularly every 4 weeks for 4 week(s) Active Vitamin B12 500 mcg 1 tab(s) orally once a day for 30 day(s) Active Aspir 81 81 mg 1 tab orally daily Active Ubrelvy 100 mg 1 tab(s) orally once as needed for migraine headache for 30 days 10/03/2022 Active Rosuvastatin Calcium 20 mg 1 tab(s) oral ly once a day for 30 day(s) Active D 2000 IU 2000 intl units as directed or ally once a day for 30 day(s) 04/25/2020 Active trazodone 150 mg 2 tabs orally once a day (at bedtime) for 30 days Active IMMUNIZATIONS Vaccine Route Administration Date Status Comme nts FLUZONE 6MO - OLDER IM Intramuscular 01/07/2023 Administer ed FLUZONE 6MO - OLDER IM Intramuscular 01/08/2022 Administer ed Fluvirin--Influenza vaccine 3+ year Unknown 10/31/2011 Administered SOCIAL HISTORY Tobacco Use: Social History Observation Description Date Details (start date - stop date) Current Smoker NA - NA Sex Assigned At : Social History Observation Description Sex Assigned At Unknown Smoking: Question Answer Notes Are you a: current smoker How often do you smoke cigarettes? every day How many cigarettes a day do you smoke? 6-10 PROBLEMS Problem Type ICD Code Onset Dates Problem Status W/U Status Risk SNOMED Code Notes Problem Mixed hyperlipidemia (E78.2) Active confirmed 832707678 Problem Essential (primary) hypertension (I10) Active confirmed 06161939 Problem Tobacco use (Z72.0) Active confirmed 752052872 Problem Vitamin D deficiency (E55.9) Active confirmed 99308003 Problem B12 deficiency (E53.8) Active confirmed 128773216 Problem Acquired hypothyroidism (E03.9) Active confirmed Problem Chronic insomnia (F51.04) Active confirmed 764114131 Problem Migraine without aura and without status migrainosus, not intractable (G43.009) Active confirmed 727456830 Problem IRENE (generalized anxiety disorder) (F41.1) Active confirmed 93095326 Problem Chronic GERD (K21.9) Active confirmed 365432777 Problem Prediabetes (R73.03) Active confirmed 879675003 Problem Tobacco use disorder (F17.200) Active confirmed 837692020 Problem History of CVA with residual deficit (I69.30) Active confirmed 303040174 Problem HTN (hypertension), malignant (I10) Active confirmed 33160230 Problem Anxiety with depression (F41.8) Active confirmed 830565999 Problem Intractable migraine with aura with status migrainosus (G43.111) Active confirmed 088463982 Problem History of drug abuse (F19.11) Active confirmed 799946545 Problem Episodic migraine (G43.909) Active confirmed 826075261160724 VITAL SIGNS Heart Rate 82 /min 01/07/2023 Temperature 97.2 degrees Fahrenheit 01/07/2023 Blood pressure diastolic 78 mm Hg 01/07/2023 Height 5 ft 5 in in 01/07/2023 Blood pressure systolic 120 mm Hg 01/07/2023 Weight 164.4 lbs 01/07/2023 BMI 27.35 kg/m2 01/07/2023 Encounters Encounter Location Date Provider Diagnosis [address] [address] 07/09/2022 Miroslava Jennifer Pain in right ankle and joints of right foot M25.571 ; Right ankle instability M25.371 ; Mixed hyperlipidemia E78.2 ; Essential (primary) hypertension I10 ; Vitamin D deficiency E55.9 ; Acquired hypothyroidism E03.9 ; Anxiety with depression F41.8 ; Chronic insomnia F51.04 ; Prediabetes R73.03 and Anemia, unspecified type D64.9 [facility] [address] [address] 07/30/2022 Miroslava Rodriguez Cellulitis of face L03.[address] [address] 10/03/2022 Miroslava Rodriguez Acquired hypothyroid ism E03.9 ; B12 deficiency E53.8 ; Episodic migraine G43.909 ; History of CVA with residual deficit I69.30 ; Tobacco use disorder F17.200 ; History of drug abuse F19.11 and Anxiety with depression F41.8 [facility] [address] [address] 01/07/2023 Miroslava Rodriguez Acquired hypothyroid ism E03.9 ; B12 deficiency E53.8 ; Episodic migraine G43.909 ; Anxiety with depression F41.8 ; Essential (primary) hypertension I10 ; Mixed hyperlipidemia E78.2 ; Vitamin D deficiency E55.9 and Encounter for immunization Z23 [facility] [address] [address] 03/28/2022 Miroslava Rodriguez [facility] [address] [address] 04/24/2022 Miroslava Rodriguez Breast cancer screen ing by mammogram Z12.31 and Personal history of tobacco use, presenting hazards to health Z87.891 [facility] [address] [address] 06/24/2022 Miroslava Rodriguez [facility] [address] [place] [address] 07/09/2022 Miroslava Rodriguez Essential (primary) hypertension I10 ; Mixed hyperlipidemia E78.2 and Chronic GERD K21.9 [facility] [address] [address] 07/18/2022 Miroslava Rodriguez ASSESSMENTS Encounter Date Diagnosis Assessment Notes Treatment Notes Treatment Clinical Notes 04/24/2022 Breast cancer screening by mammogram (ICD-10 - Z12.31) 04/24/2022 Personal history of tobacco use, presenting hazards to health (ICD-10 - Z87.891) 07/09/2022 Pain in right ankle and joints of right foot (ICD-10 - M25.571) Continues to do quite well overall, continue follow-up with dermatology as well as her recovery clinic. Will refer to podiatry, suspect chronic tendinitis: Other ligament injury in the right ankle. Monitoring labs as noted 07/09/2022 Right ankle instability (ICD-10 - M25.371) 07/09/2022 Essential (primary) hypertension (ICD-10 - I10) 07/30/2022 Cellulitis of face (ICD-10 - L03.211) cleanse BID warm soapy water and pat dry, aquaphor at HS only, oral antibiotics and continue FU with dermatology 10/03/2022 B12 deficiency (ICD-10 - E53.8) 10/03/2022 Acquired hypothyroidism (ICD-10 - E03.9) We will repeat labs today as noted. Make any adjustments that are indicated. She inquired about resuming Topamax but I feel like it is in her best interest to avoid that given her cognitive concerns. Samples of Qulipta 60 mg provided for migraine prevention and Ubrelvy 100 mg to use as needed for abortive therapy. She is not a candidate for triptans because of her stroke history and has been on tricyclic antidepressants in the past. I do think it is reasonable to touch base with neurology to make sure we are covering all the bases with respect to preventing a recurrent stroke and maximizing her functional abilities. Chronic disease management is complicated by her history of drug abuse and depression requiring polypharmacy. 01/07/2023 B12 deficiency (ICD-10 - E53.8) 01/07/2023 Acquired hypothyroidism (ICD-10 - E03.9) overall stable chronic disease, continued FU with neurology encouraged will repeat monitoring labs as noted but no medication changes recommended unless indicated on lab results _update flu vaccination as noted 01/07/2023 Episodic migraine (ICD-10 - G43.909) 10/03/2022 Episodic migraine (ICD-10 - G43.909) 07/09/2022 Mixed hyperlipidemia (ICD-10 - E78.2) 07/09/2022 Mixed hyperlipidemia (ICD-10 - E78.2) 07/09/2022 Chronic GERD (ICD-10 - K21.9) 10/03/2022 History of CVA with residual deficit (ICD-10 - I69.30) 01/07/2023 Anxiety with depression (ICD-10 - F41.8) 01/07/2023 Essential (primary) hypertension (ICD-10 - I10) 10/03/2022 Tobacco use disorder (ICD-10 - F17.200) 07/09/2022 Essential (primary) hypertension (ICD-10 - I10) 07/09/2022 Vitamin D deficiency (ICD-10 - E55.9) 01/07/2023 Mixed hyperlipidemia (ICD-10 - E78.2) 10/03/2022 History of drug abuse (ICD-10 - F19.11) 10/03/2022 Anxiety with depression (ICD-10 - F41.8) 01/07/2023 Vitamin D deficiency (ICD-10 - E55.9) 07/09/2022 Acquired hypothyroidism (ICD-10 - E03.9) 07/09/2022 Anxiety with depression (ICD-10 - F41.8) 01/07/2023 Encounter for immunization (ICD-10 - Z23) 07/09/2022 Chronic insomnia (ICD-10 - F51.04) 07/09/2022 Prediabetes (ICD-10 - R73.03) 07/09/2022 Anemia, unspecified type (ICD-10 - D64.9) PLAN OF TREATMENT Pending Test Test Name Order Date Ultrasound : Abdomen 01/11/2015 Mammogram : Bilateral 11/03/2018 Mammogram : Bilateral 10/31/2020 H-CBC with AUTO DIFF 04/28/2014 H-VITAMIN B12 01/11/2015 H-VITAMIN B12 04/28/2014 H-CMP 04/28/2014 H-LIPID PANEL 01/11/2015 H-LIPID PANEL 04/28/2014 H-TSH 01/11/2015 H-TSH 04/28/2014 H-VIT D, 1,25-HYDROXY 01/11/2015 H-VIT D, 25-HYDROXY 04/28/2014 H-HELICOBACTER PYLORI IGM AB 12/14/2014 C-CBC 01/23/2016 C-CMP 01/23/2016 C-CMP 07/07/2016 C-LIPID PANEL 07/07/2016 C-LIPID PANEL 01/23/2016 C-TSH 07/07/2016 C-TSH 01/23/2016 C-FREE T4 11/23/2019 C-VITAMIN B12 01/23/2016 C-HGBA1C 11/29/2019 C-VITAMIN D, 25-HYDROXY 01/23/2016 M-Complete Blood Count Auto Diff 019 M-Complete Blood Count Auto Diff 023 M-Complete Blood Count Auto Diff 022 M-Comprehensive Metabolic Panel 07/11/19 22 M-Comprehensive Metabolic Panel 01/08/20 23 M-Comprehensive Metabolic Panel 07/15/19 19 M-Comprehensive Metabolic Panel 04/26/19 21 M-Hemoglobin A1C 04/25/2020 M-Lipid Panel 07/14/2018 M-Lipid Panel 07/10/2021 M-Lipid Panel 01/07/2023 M-Free T4 (Free Thyroxine) 01/07/2023 M-Free T4 (Free Thyroxine) 12/19/2020 M-Free T4 (Free Thyroxine) 07/10/2021 M-Thyroid Stimulating Hormone 04/25/2020 M-Thyroid Stimulating Hormone 07/14/2018 M-Thyroid Stimulating Hormone 01/07/2023 M-Thyroid Stimulating Hormone 07/10/2021 M-Vitamin B12 01/07/2023 M-Vitamin B12 07/14/2018 M-Vitamin B12 10/31/2020 M-Vitamin D 25 Hydroxy 10/31/2020 M-Vitamin D 25 Hydroxy 07/14/2018 M-Vitamin D 25 Hydroxy 04/25/2020 M-Vitamin D 25 Hydroxy 01/07/2023 M-Vitamin D 25 Hydroxy 07/10/2021 Future Test Test Name Order Date H-CMP 01/03/2013 H-LIPID PANEL 01/03/2013 H-TSH 01/03/2013 Insurance Providers Payer Name Payer Address Payer Phone Subscriber Number Group Number Insured Name Patient Relationship to Insured Coverage Start Date Coverage End Date [employer] [facility] [address] [address] [place] [address] [id number] Alayna Lee Self - patient is the insured MEDICATIONS ADMINISTERED Medication Instructions Date of Administration Dosage Notes Cyanocobalamin/B-12 Pt's Own Medication 11/29/2013 1 mL Cyanocobalamin/B-12 Pt's Own Medication 12/13/2013 Cyanocobalamin/B-12 Pt's Own Medication 04/28/2014 MEDICAL (GENERAL) HISTORY Medical History History ICD Code migraines since she was 13 HTN Hypothyroidism- Graves disease Vitamin D deficiency B12 deficiency hormone replacement therapy histoplasmosis endometriosis-hysterectomy Tobacco abuse Anxiety CVA with viusal deficit - 2016. Dr Tina rodrigues at [facility] Basal Cell Carcinoma- DX by dermatologis t 2022 Surgical History Surgery Date(Month/Year) hysterectomy in-vetro x3 Appendectomy Dx lap Tubal ligation Left shoulder repair Right inguinal hernia Liposuction on chin Hospitalization History Reason Date(Month/Year) childbirth [facility]-CVA 04/2016 Surgeries as above
== END ==
PROVIDERS: PCP Nurse Practitioner Family; Visit Provider Specialist
DX: G47.33 Obstructive sleep apnea (adult) (pediatric) (principal); R06.83 Snoring; R53.83 Other fatigue
CPT/HCPCS: G0399

== ENCOUNTER 2023-08-26 14:48 | Outpatient (CLI) | payer OTHER, SELFPAY ==
--- NOTE | 2023-08-26 15:01 | CT_ITS ---
FINAL REPORT TECHNIQUE: Thin section axial images were obtained from the lung apices to the upper abdomen by computed tomography. Reformatted images were obtained and reviewed. This study was performed with techniques to keep radiation doses al low as reasonably achievable (ALARA). Individualized dose reduction techniques using automated exposure control or adjustment of mA and/or kV according to the patient's size were employed. CLINICAL HISTORY: NICOTINE DEPENDENT SMOKER X30 YEARS, 1/2 PPD HX OF SKIN CANCER COMPARISON: May 22, 2022 CT FINDINGS: CHEST CT LOW DOSE CTDI vol (mGy): 2.90 DLP (mGy-cm): 96.38 There is no axillary adenopathy. There is no mediastinal or hilar mass or adenopathy. The heart is normal in size. There is no pericardial or pleural effusion. There is mild pulmonary scarring. Lung window images demonstrate no suspicious infiltrate or nodule. Limited images of the upper abdomen reveal a partially imaged low-attenuation left adrenal nodule that is probably stable but not as well-visualized. An adenoma is favored.. IMPRESSION: Lung-RADS category 1. Recommend 12 month follow up low dose chest CT. Probably stable left adrenal nodule, favor an adenoma. Authenticated and ERN
--- NOTE | 2023-08-26 15:02 | MM_ITS ---
PROCEDURE INFORMATION: Exam: MG Bilateral Screening 3D Mammography Exam date and time: 08/26/2023 3:08 PM Age: 58 years old Clinical indication: Screening examination TECHNIQUE: Imaging protocol: Bilateral Screening tomosynthesis and 2D mammography including computer-aided detection (CAD) when performed. COMPARISON: 1. MG MM DIG SCREENING MAMM BI W/CAD 05/22/2022 3:07 PM 2. MG MM DIG SCREENING MAMM BI W/CAD 12/07/2020 2:58 PM FINDINGS: MAMMOGRAPHY: Breast composition: There are scattered areas of fibroglandular density. Mass: None. Architectural distortion: None. Calcifications: No suspicious calcifications. Asymmetric density: None. Skin thickening: None. Axillary adenopathy: None. IMPRESSION: No mammographic evidence of malignancy. Annual screening is recommended unless otherwise clinically indicated. ASSESSMENT: BI-RADS Category 1: Negative
== END 2023-08-26 23:59 | disposition home or self-care (01) ==
LOC: RAD 14:49
PROVIDERS: PCP Nurse Practitioner Family; Visit Provider Nurse Practitioner Family
DX: Z12.31 Encounter for screening mammogram for malignant neoplasm of breast (principal); Z87.891 Personal history of nicotine dependence
CPT/HCPCS: 71271; 77063; 77067

== ENCOUNTER 2023-09-10 10:25 | Day surgery (SDC) | payer OTHER, SELFPAY ==
[2023-09-08 13:41] VITALS: BMI 29.9
--- OUTSIDE RECORDS SUMMARY | 2023-09-10 10:27 | XMS_ITS ---
Author Name Unknown Organization [facility] Address [address] [facility] [address] [place] [address] Care Team Providers Care Senior Controls Analyst Name Role Phone SurinderKendell elena Primary Care Provider [phone] Miroslava Rodriguez [facility] [phone] REASON FOR VISIT refills MEDICATIONS Medication SIG (Take, Route, Frequency, Duration) Notes Start Date End Date Status hydrOXYzine hydrochloride 25 mg 1 tab(s) orally twice daily and at bedtime for 30 days Active Cymbalta 30 mg 1 cap(s) orally once a day with 60mg dose for 30 days Active Losartan Potassium 100 mg 1 tab(s) orall y once a day for 30 days Active atenolol 50 mg 1 tab(s) orally once a day for 30 days Active Rosuvastatin Calcium 20 mg 1 tab(s) oral ly once a day for 30 day(s) Active Ondansetron Hydrochloride 4 mg 1 tab(s) orally every 6 hours PRN for 4 days Active omeprazole 40 mg 1 cap(s) orally once a day for 30 day(s) Active Encounters Encounter Location Date Provider Diagnosis [facility] [address] [facility] [address] [place] [address] 07/15/2023 Miroslava Rodriguez PLAN OF TREATMENT Medication Medication Name Sig Start Date Stop Date Notes hydrOXYzine hydrochloride 25 mg 1 tab(s) orally twice daily and at bedtime for 30 days Cymbalta 30 mg 1 cap(s) orally once a day with 60mg dose for 30 days Losartan Potassium 100 mg 1 tab(s) orall y once a day for 30 days atenolol 50 mg 1 tab(s) orally once a day for 30 days Rosuvastatin Calcium 20 mg 1 tab(s) oral ly once a day for 30 day(s) Ondansetron Hydrochloride 4 mg 1 tab(s) orally every 6 hours PRN for 4 days omeprazole 40 mg 1 cap(s) orally once a day for 30 day(s) Progress Notes * Alayna HENSONDOB:1965 (58 yo F)Acc No.[id number]:07/15/2023 Patient:??Alayna HENSON :1965?Age:58 Y?Sex:Fe male Address:[address] [place] [id number] * Refills?? Refill Ondansetron Hydrochloride tablet, 4 mg, orally, 16, 1 tab(s), every 6 hours PRN, 4 days, Refills=1 Refill omeprazole delayed release capsule, 40 mg, orally, 30, 1 cap(s), once a day, 30 day(s), Refills=5 Refill Losartan Potassium tablet, 100 mg, orally, 30 Tablet, 1 tab(s), once a day, 30 days, Refills=5 Refill atenolol tablet, 50 mg, orally, 30 Tablet, 1 tab(s), once a day, 30 days, Refills=5 Refill Rosuvastatin Calcium tablet, 20 mg, orally, 30, 1 tab(s), once a day, 30 day(s), Refills=5 Refill hydrOXYzine tablet, hydrochloride 25 mg, orally, 90, 1 tab(s), twice daily and at bedtime, 30 days, Refills=2 Refill Cymbalta delayed release capsule, 30 mg, orally, 30, 1 cap(s), once a day with 60mg dose, 30 days, Refills=5 * true * Date:??
--- OUTSIDE RECORDS SUMMARY | 2023-09-10 10:27 | XMS_ITS ---
Author Name Unknown Organization [facility] Address [address] [place] [address] Care Team Providers Care City Bailiff Name Role Phone Kendell Kelsey Primary Care Provider [phone] JenniferMiroslava amaro Unavailable [phone] RESULTS Component Value Reference Range Notes Mammogram : Bilateral Reviewed date:09/03/2023 03:27:02 PM Interpretation: Performing Lab: Notes/Report: CT Scan : Chest, Lung Cancer Screening Reviewed date:09/01/2023 04:49:27 PM Interpretation: Performing Lab: Notes/Report: Encounters Encounter Location Date Provider Diagnosis [facility] [address] [place], [place] [address] 08/14/2023 Miroslava Rodriguez History of nicotine dependence Z87.891 and Breast cancer screening by mammogram Z12.31 ASSESSMENTS Encounter Date Diagnosis Assessment Notes Treatment Notes Treatment Clinical Notes 08/14/2023 History of nicotine dependence (ICD-10 - Z87.891) 08/14/2023 Breast cancer screening by mammogram (ICD-10 - Z12.31) PLAN OF TREATMENT No Information Progress Notes * Alayna HENSONDOB:1965 (58 yo F)Acc No.[id number]:08/14/2023 Patient:??Alayna HENSON :1965?Age:58 Y?Sex:Fe male Address:[address], [place], [address] Subjective: * Chief Complaints: * ? * Medical History:?? * Surgical History:?? * Hospitalization/Major Diagno stic Procedure:?? * Medications:?? Objective: Assessment: * Assessment: 1.??History of nicotine depe ndence - Z87.891??2.??Breast cancer screening by mammogram - ?? Plan: * Treatment: 2.??Breast cancer screening by mammogram?Imaging: Mammogram : Bilateral* * Procedure Codes:?? * true * Date:??
--- OUTSIDE RECORDS SUMMARY | 2023-09-10 10:27 | XMS_ITS ---
Author Name Unknown Organization [facility] Address [address] [place] [address] Care Team Providers Care Exercise Science Instructor Name Role Phone SurinderKendell elena Primary Care Provider [phone] Miroslava Rodriguez Unavailable [phone] ALLERGIES Allergen (clinical drug ingredient) Drug/Non Drug Allergy documented on EMR Reaction Allergy Type Onset Date Status PCN (uncoded) Unknown Allergy Active Triptans (uncoded) hx CVA Allergy A ctive REASON FOR REFERRAL Reason Colonoscopy (abnorma l Cologuard) Screening Mamm and LDCT chest at [facility] Diagnosis 1 Routine medical exam (Z00.00) Referral Organization [facility] MENDY BRITTON Referring Provider First Name Miroslava Referring Provider Last Name Jennifer Referring Provider Speciality Family Pra wvice General Notes Deja Lau 02:33:37 PM > [facility] GI will call her, Deja Lau 07/23/2023 03:13:26 PM > Alayna informed Referral Priority Routine Referral Appointment Date 08/12/2023 REASON FOR VISIT 3 month ck, colonscopy due having positive cologuard, Rt knee pain MEDICATIONS Medication SIG (Take, Route, Frequency, Duration) Notes Start Date End Date Status trazodone 150 mg 2 tabs orally once a day (at bedtime) for 30 days Active Cymbalta 60 mg 1 cap(s) orally once a day for 30 day(s) Active Cyclobenzaprine Hydrochloride 5 mg 1 tab(s) orally once a day for 30 days Active levothyroxine 137 mcg (0.137 mg) 1 tab(s) orally once a day for 30 days Active Cymbalta 30 mg 1 cap(s) orally once a day with 60mg dose for 30 day(s) Active omeprazole 40 mg 1 cap(s) orally once a day for 30 day(s) Active Losartan Potassium 100 mg 1 tab(s) orall y once a day for 30 days Active atenolol 50 mg 1 tab(s) orally once a day for 30 days Active Rosuvastatin Calcium 20 mg 1 tab(s) oral ly once a day for 30 day(s) Active hydrOXYzine hydrochloride 25 mg 1 tab(s) orally twice daily and at bedtime for 30 days Active D 2000 IU 2000 intl units as directed or ally once a day for 30 day(s) 04/25/2020 Active ibuprofen 600 mg 1 tab(s) orally ever y 6 hours as needed for pain for 30 days 07/09/2022 Active Ubrelvy 100 mg 1 tab(s) orally once as needed for migraine headache for 30 days 10/03/2022 Active Vitamin B12 500 mcg 1 tab(s) orally once a day for 30 day(s) Active Aspir 81 81 mg 1 tab orally daily Active Vivitrol 380 mg as directed intramuscularly every 4 weeks for 4 week(s) Active Ondansetron Hydrochloride 4 mg 1 tab(s) orally every 6 hours PRN for 4 days Active Ajovy vfrm 225 mg/1.5 mL as directed sub cutaneously 3 injection every 3 months Activ e SOCIAL HISTORY Tobacco Use: Social History Observation Description Date Details (start date - stop date) Current Smoker NA - NA Sex Assigned At : Social History Observation Description Sex Assigned At Unknown Smoking: Question Answer Notes Are you a: current smoker How often do you smoke cigarettes? every day How many cigarettes a day do you smoke? 6-10 VITAL SIGNS Temperature 98.1 degrees Fahrenheit 07/15/19 24 Blood pressure systolic 124 mm Hg 07/15/19 24 Blood pressure diastolic 72 mm Hg 024 Heart Rate 80 /min 07/15/2023 Height 5 ft 5 in in 07/15/2023 Weight 182 lbs 07/15/2023 BMI 30.28 kg/m2 07/15/2023 Encounters Encounter Location Date Provider Diagnosis [place] [phone] 07/15/2023 Miroslava Rodriguez Pain, joint, knee, right M25.561 ; Routine medical exam Z00.00 ; Acquired hypothyroidism E03.9 ; B12 deficiency E53.8 ; Episodic migraine G43.909 ; Anxiety with depression F41.8 ; Essential (primary) hypertension I10 ; Mixed hyperlipidemia E78.2 and Vitamin D deficiency E55.9 ASSESSMENTS Encounter Date Diagnosis Assessment Notes Treatment Notes Treatment Clinical Notes 07/15/2023 Pain, joint, knee, right (ICD-10 - M25.561) Rec knee sleeve with activity, consider PT, suspect tendonitis 07/15/2023 Routine medical exam (ICD-10 - Z00.00) 07/15/2023 Acquired hypothyroidism (ICD-10 - E03.9) overall stable chronic disease, continued FU with neurology encouraged will repeat monitoring labs as noted but no medication changes recommended unless indicated on lab results 07/15/2023 B12 deficiency (ICD-10 - E53.8) continue replacement 07/15/2023 Episodic migraine (ICD-10 - G43.909) continue current regimen 07/15/2023 Anxiety with depression (ICD-10 - F41.8) well controlled 07/15/2023 Essential (primary) hypertension (ICD-10 - I10) continue current regimen, at goal 07/15/2023 Mixed hyperlipidemia (ICD-10 - E78.2) 07/15/2023 Vitamin D deficiency (ICD-10 - E55.9) PLAN OF TREATMENT Treatment Notes Assessment Notes Pain, joint, knee, right Rec knee sleeve with activity, consider PT, suspect tendonitis Acquired hypothyroidism overall stable chronic disease, continued FU with neurology encouraged will repeat monitoring labs as noted but no medication changes recommended unless indicated on lab results B12 deficiency continue replacement Episodic migraine continue current reg imen Anxiety with depression well controlled Essential (primary) hypertension continu e current regimen, at goal Pending Test Test Name Order Date M-Complete Blood Count Auto Diff 024 M-Comprehensive Metabolic Panel 07/15/19 24 M-Lipid Panel 07/15/2023 M-Free T4 (Free Thyroxine) 07/15/2023 M-Thyroid Stimulating Hormone 07/15/2023 M-Vitamin B12 07/15/2023 M-Vitamin D 25 Hydroxy 07/15/2023 Referrals Referral Date Details 08/12/2023 08/12/2023, Colonosc opy (abnormal Cologuard) Screening Mamm and LDCT chest at [facility] Next Appt Details Follow Up: 6 Months,Zoie euceda son: Progress Notes * Alayna HENSONDOB:1965 (58 yo F)Acc No.[id number]:07/15/2023 Progress Notes Patient:??Alayna HENSON Provider:??OBEY Reynoso :1965?Age:58 Y?Sex:Fe male Date:07/15/2023 Address:[facility], [place], [id number] Pcp:Kendell Kelsey Subjective: * Chief Complaints: * ?1. 3 month ck. 2. Lena nscopy due having positive cologuard. 3. Rt knee pain. * HPI: ?gen:? Presents today for routine 6-month follow-up regarding chronic disease. Recent Cologuard positive...needs colonoscopy ?Also reports development of RIGHT knee pain, medial and now lateral also. since November. PT for balance in November and pain began during those treatments. no rest pain. some sensation of giving out. ?Cardiology:? Presents today for 6 mo FU on several chronic conditions. ?c/o fatigue??sleeping better overall.?Denies : chest pain.??Denies : shortness of breath.??Denies : dizziness.??Denies : palpitations.??Denies : leg edema.??Denies : cyanosis.??Denies : diaphoresis.? Smoking a little less than 1ppd ?Tolerating crestor much better than atorvastatin ?Headaches are less often. ?Gastroenterology:? Taking PPI daily. Chronic IBS with alternating constipation/diarrhea are much improved. Less bloating and discomfort. Taking miralax every day. ?Psychology:? Depression stable overall. ?Denies : thoughts of hurting self.??Denies : hallucinations.?Hypothyroidism:? Tolerating replacement ?due for monitoring labs, has been taking consistently. * ROS:?RESPIRATORY:?no??Shortness of breath.??no??Chest congestion.??no??Cough.?CARDIOLOGY:?no??Dizziness.??no??Chest pain.??no??Palpitations.?CONSTITUTIONAL:?Weight gain??yes.??no??Loss of appetite.??no??Fever.??no??Weakness.?DERMATOLOGY:?no??Rash.?GASTROENTEROLOGY:?See HPI??Yes.?MUSCULOSKELETAL:?See HPI??Yes.?PSYCHOLOGY:?See HPI??Yes.??no??Sleep disturbances.?UROLOGY:?no??Difficulty urinating.??no??Blood in urine.? * Medical History:??Migraines since she was 13, HTN, Hypothyroidism- Graves disease, Vitamin D deficiency, B12 deficiency, Hormone replacement therapy, Histoplasmosis, Endometriosis-hysterectomy, Tobacco abuse, Anxiety, CVA with viusal deficit - 2016. Dr Hardy at [facility], HLD, Basal Cell Carcinoma- DX by drafter structural 2022. * Surgical History:??hysterect aubree , in-vetro x3 , Appendectomy , Dx lap , Tubal ligation , Left shoulder repair , Right inguinal hernia , Liposuction on chin . * Hospitalization/Major Diagno stic Procedure:??childbirth , Surgeries as above , [facility]-CVA 04/2016. * Family History:??Father: dec eased, MS, cancer, Dementia.??Mother: , MS, heart disease, diabetes, cancer.??Paternal Grand Father: , prostate cancer.??Paternal Grand Mother: .??Maternal Grand Father: , heart disease, lung cancer.??Maternal Grand Mother: , heart disease.??Children: alive, youngest daughter- Graves disease- thyroidectomy.??3 daughter(s) . .?? * Social History:??Smoking??Ar e you a:??current smoker,??How often do you smoke cigarettes???every day,??How many cigarettes a day do you smoke???6- 10.??Recreational drug use: no. Exercise: no. Home smoke detector use: yes. Caffeine: yes, occassional. Living Will: No. Alcohol: no. Travel outside [place]: no. 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 * Medications:??Taking Ondanse janet Hydrochloride 4 mg tablet 1 tab(s) orally every 6 hours PRN , Taking Ajovy vfrm 225 mg/1.5 mL solution as directed subcutaneously 3 injection every 3 months , Taking Vivitrol 380 mg powder for injection, extended release as directed intramuscularly every 4 weeks , Taking Vitamin B12 500 mcg tablet 1 tab(s) orally once a day , Taking Aspir 81 81 mg delayed release tablet 1 tab orally daily , Taking D 2000 IU 2000 intl units tablet as directed orally once a day , Taking ibuprofen 600 mg tablet 1 tab(s) orally every 6 hours as needed for pain , Taking Ubrelvy 100 mg tablet 1 tab(s) orally once as needed for migraine headache , Taking omeprazole 40 mg delayed release capsule 1 cap(s) orally once a day , Taking Losartan Potassium 100 mg tablet 1 tab(s) orally once a day , Taking atenolol 50 mg tablet 1 tab(s) orally once a day , Taking Rosuvastatin Calcium 20 mg tablet 1 tab(s) orally once a day , Taking hydrOXYzine hydrochloride 25 mg tablet 1 tab(s) orally twice daily and at bedtime , Taking Cyclobenzaprine Hydrochloride 5 mg tablet 1 tab(s) orally once a day , Taking levothyroxine 137 mcg (0.137 mg) tablet 1 tab(s) orally once a day , Taking Cymbalta 30 mg delayed release capsule 1 cap(s) orally once a day with 60mg dose , Taking trazodone 150 mg tablet 2 tabs orally once a day (at bedtime) , Taking Cymbalta 60 mg delayed release capsule 1 cap(s) orally once a day , Medication List reviewed and reconciled with the patient * Allergies:??PCN, Triptans: h x CVA. Objective: * Vitals:??Nurse: rell, Temp: 98 .1, RR: 18, HR: 80, BP: 124/72, Ht: 5 ft 5 in, Wt: 182, BMI:30.28. * Examination: ?General Examination: ?General??Pleasant and Cooperative, NAD on RA,.?Chest:??normal shape and expansion.?Heart:??Regular Rate and Rhythm, no murmur, rubs or gallops.?Lungs:??LCTAB, No wheezes, crackles or rhonchi, Good air movement,.?Abdomen:??Soft, NTND, BSNA, No organomegaly or peritoneal signs..?Skin:??without acute rashes.?Extremities:??no clubbing, no edema, right knee FROM, mildly tender lateral/anterior aspect, no crepitus.?neck??supple,, no thyromegaly,, no lymphadenopathy,.?Psych??Normal Mood/Affect.? Assessment: * Assessment: 1.??Routine medical exam - Z 00.00 (Primary)??2.??Pain, joint, knee, right - M25.561??3.??Acquired hypothyroidism - E03.9??4.??B12 deficiency - E53.8??5.??Episodic migraine - G43.909??6.??Anxiety with depression - F41.8??7.??Essential (primary) hypertension - I10??8.??Mixed hyperlipidemia - E78.2??9.??Vitamin D deficiency - E55.9?? Plan: * Treatment: 2.??Pain, joint, knee, right ?? Notes: Rec knee sleeve with activity, consider PT, suspect tendonitis? 3.??Acquired hypothyroidism?LAB: M-Free T4 (Free Thyroxine) ?LAB: M-Thyroid Stimulating Hormone Notes: overall stable chronic disease, continued FU with neurology encouraged will repeat monitoring labs as noted but no medication changes recommended unless indicated on lab results ? 4.??B12 deficiency?LAB: M-Complete Blood Count Auto Diff ?LAB: M-Vitamin B12 Notes: continue replacement? 5.??Episodic migraine?? Notes: continue current regimen? 6.??Anxiety with depression? ? Notes: well controlled? 7.??Essential (primary) hype rtension?LAB: M-Comprehensive Metabolic Panel ?LAB: M-Lipid Panel Notes: continue current regimen, at goal? 8.??Mixed hyperlipidemia?LAB: M-Comprehensive Metabolic Panel ?LAB: M-Lipid Panel 9.??Vitamin D deficiency?LAB: M-Vitamin D 25 Hydroxy * Follow Up:??6 Months,prn * * Sign off status: Completed true * Provider:??OBEY Reynoso Date: ??07/15/2023 History and Physical Notes * HPI (History of Present Illness) Category Sub-Category Detail Notes Cardiology shortness of breath chest pain palpitations dizziness leg edema fatigue sleeping better over all cyanosis diaphoresis Psychology thoughts of hurting self hallucinations Examination Category Sub-Category Detail Notes General Examination Heart: Regular Rate and Rhythm, no murmur, rubs or gallops Lungs: LCTAB, No wheezes, c rackles or rhonchi, Good air movement, Abdomen: Soft, NTND, BSNA, No organomegaly or peritoneal signs. Extremities: no clubbing, no ashley a, right knee FROM, mildly tender lateral/anterior aspect, no crepitus Skin: without acute rashes Chest: normal shape and exp ansion neck supple,, no thyromeg bret,, no lymphadenopathy, General Pleasant and Coopera tive, NAD on RA, Psych Normal Mood/Affect Consultation Request Notes Referral Date Referring Provider Referred Provider Not es 07/15/2023 Miroslava Rodriguez , Colonoscopy (abnormal Cologuard) Screening Mamm and LDCT chest at [facility]
--- OUTSIDE RECORDS SUMMARY | 2023-09-10 10:28 | XMS_ITS | Patient Health Record ---
Author Name Unknown Organization [facility] Address [address] [place] [address] Care Team Providers Care Director Community Health Nursing Name Role Phone SurinderkassyTomerKendell Primary Care Provider [phone] Miroslava Rodriguez Unavailable [phone] ALLERGIES Allergen (clinical drug ingredient) Drug/Non Drug Allergy documented on EMR Reaction Allergy Type Onset Date Status PCN (uncoded) Unknown Allergy Active Triptans (uncoded) hx CVA Allergy A ctive RESULTS Component Value Reference Range Notes Mammogram : Bilateral Reviewed date:09/03/2023 03:27:02 PM Interpretation: Performing Lab: Notes/Report: M-Complete Blood Count [...] Performing Lab: Notes/Report: TSH 0.03 0.465-4.68 uIU/mL CT Scan : Chest, Lung Cancer Screening Reviewed date:09/01/2023 04:49:27 PM Interpretation: Performing Lab: Notes/Report: H-TVITD Reviewed date:01/23/2023 11:38:39 AM Interpretation: Performing Lab: Notes/Report: TVITD 87.5 30-100 ng/mL Deficient <20 ng/mL Insufficient 20-30 ng/mL Sufficient 30-100 ng/mL Potential Toxicity >100 ng/mL H-VITB12 Reviewed date:01/23/2023 11:38:39 AM Interpretation: Performing Lab: Notes/Report: VITB12 967 239-931 pg/mL BASIC METABOLIC PANEL (49427 ) Reviewed date:10/06/2022 09:12:29 AM Interpretation: Performing Lab:[facility] [employer] [id number] [employer] [place] [id number] [place] Notes/Report: NON-FASTING; NON-FASTING; NON-FASTING; NON-FASTING [...] 27 20-32 mmol/L CALCIUM 10.0 8.6-10.4 mg/dL CBC (INCLUDES DIFF/PLT) (639 9) Reviewed date:10/06/2022 09:12:29 AM Interpretation: Performing Lab:[facility] [employer] [id number] [employer], [id number] [place] Notes/Report: NON-FASTING; NON-FASTING; NON-FASTING; NON-FASTING WHITE BLOOD CELL COUNT 4.1 3.8-10.8 Thousand/ uL RED BLOOD CELL COUNT 4.44 3.80-5.10 Million/uL HEMOGLOBIN 13.6 11.7-15.5 g/dL HEMATOCRIT 40.6 35.0-45.0 % MCV 91.4 80.0-100.0 fL MCH 30.6 27.0-33.0 pg MCHC 33.5 32.0-36.0 g/dL RDW 12.2 11.0-15.0 % PLATELET COUNT 173 140-400 Thousand/uL MPV 10.8 7.5-12.5 fL ABSOLUTE NEUTROPHILS 2382 7569-7154 cells/uL ABSOLUTE LYMPHOCYTES 2404 280-5265 cells/uL ABSOLUTE MONOCYTES 377 200-950 cells/uL ABSOLUTE EOSINOPHILS 0 15-500 cells/uL ABSOLUTE BASOPHILS 29 0-200 cells/uL NEUTROPHILS 58.1 LYMPHOCYTES 32.0 MONOCYTES 9.2 EOSINOPHILS 0.0 BASOPHILS 0.7 VITAMIN B12 (927) Reviewed date:10/06/2022 09:12:29 AM Interpretation: Performing Lab:[facility] [employer] [id number], [place] [id number] [place] Notes/Report: NON-FASTING; NON-FASTING; NON-FASTING; NON-FASTING VITAMIN B12 2003 657-3981 pg/mL TSH W/REFLEX TO FT4 (19854) Reviewed date:10/06/2022 09:12:29 AM Interpretation: Performing Lab:[facility] [employer] [id number], [id number] [place] Notes/Report: NON-FASTING; NON-FASTING; NON-FASTING; NON-FASTING NON-FASTING; NON-FASTING; NON-FASTING; NON-FASTING TSH W/REFLEX TO FT4 0.02 0.40-4.50 mIU/L T4, FREE 1.4 0.8-1.8 ng/dL REASON FOR REFERRAL Reason Dr Villavicencio for migrain es and stroke history Diagnosis 1 Episodic migraine (G 43.909) Referral Organization [facility] Referring Provider First Name Miroslava Referring Provider Last Name Jennifer Referring Provider Speciality Family [facility] General Notes Deja Lau 12/2022 02:42:34 PM > faxed and they will call pt to schedule, Deja Lau 10/07/2022 11:10:25 AM > pt notified Referral Priority Routine Reason medical records for [employer] Agarwal Referral Organization formerly [facility] Referring Provider First Name Kendell Referring Provider Last Name Surinderkassy Referring Provider [facility] ed[facility] Referral Priority Routine Reason medical records for disability determination Referral Organization formerly [facility] Referring Provider First Name Kendell Referring Provider Last Name Surinderkassy Referring Provider [facility] edicine Referral Priority Routine Reason medical records for disability determination Referral Organization formerly [facility] Referring Provider First Name Kendell Referring Provider Last Name Surinderkassy Referring Provider [facility] edicine Referral Priority Routine Reason Colonoscopy (abnorma l Cologuard) Screening Mamm and LDCT chest at [facility] Diagnosis 1 Routine medical exam (Z00.00) Referral Organization formerly [facility] Referring Provider First Name Miroslava Referring Provider Last Name Jennifer Referring Provider [facility] General Notes Deja Lau 02:33:37 PM > [facility] GI will call herSid Jenci D 07/23/2023 03:13:26 PM > Alayna informed Referral Priority Routine Referral Appointment Date 08/12/2023 Reason medical records for Norm Canupp Referral Organization formerly [facility] Referring Provider First Name Kendell Referring Provider Last Name Surinderkassy Referring Provider [facility] edicine Referral Priority Routine MEDICATIONS Medication SIG (Take, Route, Frequency, Duration) Notes Start Date End Date Status D 2000 IU 2000 intl units as directed or ally once a day for 30 day(s) 04/25/2020 Active trazodone 150 mg 2 tabs orally once a day (at bedtime) for 30 days Active ibuprofen 600 mg 1 tab(s) orally ever y 6 hours as needed for pain for 30 days 07/09/2022 Active Cymbalta 60 mg 1 cap(s) orally once a day for 30 day(s) Active Ubrelvy 100 mg 1 tab(s) orally once as needed for migraine headache for 30 days 10/03/2022 Active Ondansetron Hydrochloride 4 mg 1 tab(s) orally every 6 hours PRN for 4 days Active Vitamin B12 500 mcg 1 tab(s) orally once a day for 30 day(s) Active levothyroxine 137 mcg (0.137 mg) 1 tab(s) orally once a day for 30 days Active Aspir 81 81 mg 1 tab orally daily Active Cyclobenzaprine Hydrochloride 5 mg 1 tab(s) orally once a day for 30 days Active hydrOXYzine hydrochloride 25 mg 1 tab(s) orally twice daily and at bedtime for 30 days Active Vivitrol 380 mg as directed intramuscularly every 4 weeks for 4 week(s) Active Cymbalta 30 mg 1 cap(s) orally once a day with 60mg dose for 30 days Activ e omeprazole 40 mg 1 cap(s) orally once a day for 30 day(s) Active Losartan Potassium 100 mg 1 tab(s) orall y once a day for 30 days Active atenolol 50 mg 1 tab(s) orally once a day for 30 days Active Rosuvastatin Calcium 20 mg 1 tab(s) oral ly once a day for 30 day(s) Active Ajovy vfrm 225 mg/1.5 mL as directed sub cutaneously 3 injection every 3 months Activ e IMMUNIZATIONS Vaccine Route Administration Date Status Comme nts Fluvirin--Influenza vaccine 3+ year Unknown 10/31/2011 Administered FLUZONE 6MO - OLDER IM Intramuscular 01/08/2022 Administer ed FLUZONE 6MO - OLDER IM Intramuscular 01/07/2023 Administer ed SOCIAL HISTORY Tobacco Use: Social History Observation [...] Notes Problem Mixed hyperlipidemia (E78.2) Active confirmed 704124096 Problem Essential (primary) hypertension (I10) Active confirmed 21268199 Problem Tobacco use (Z72.0) Active confirmed 574039937 Problem Vitamin D deficiency (E55.9) Active confirmed 88618391 Problem B12 deficiency (E53.8) Active confirmed 853059979 Problem Acquired hypothyroidism (E03.9) Active confirmed Acquired hypothyroidism (094653204) Problem Chronic insomnia (F51.04) Active confirmed 215246322 Problem Migraine without aura and without status migrainosus, not intractable (G43.009) Active confirmed 262930583 Problem IRENE (generalized anxiety disorder) (F41.1) Active confirmed 42197891 Problem Chronic GERD (K21.9) Active confirmed 899614954 Problem Prediabetes (R73.03) Active confirmed 968004192 Problem Tobacco use disorder (F17.200) Active confirmed 876377320 Problem History of CVA with residual deficit (I69.30) Active confirmed 986512033 Problem HTN (hypertension), malignant (I10) Active confirmed 53194917 Problem Anxiety with depression (F41.8) Active confirmed 775534322 Problem Intractable migraine with aura with status migrainosus (G43.111) Active confirmed 400079918 Problem History of drug abuse (F19.11) Active confirmed 355564518 Problem Episodic migraine (G43.909) Active confirmed 294838826564463 VITAL SIGNS Heart Rate 80 /min 07/15/2023 Temperature 98.1 degrees Fahrenheit 07/15/2023 Blood pressure diastolic 72 mm Hg 07/15/2023 Height 5 ft 5 in in 07/15/2023 Blood pressure systolic 124 mm Hg 07/15/2023 Weight 182 lbs 07/15/2023 BMI 30.28 kg/m2 07/15/2023 Encounters Encounter Location Date Provider Diagnosis formerly [facility] [address] [place] [address] 07/15/2023 Miroslava Rodriguez [facility] [address] [place] [address] 08/14/2023 Miroslava Rodriguez History of nicotine dependence Z87.891 and Breast cancer screening by mammogram Z12.31 [facility] [address] [address] 10/03/2022 Miroslava Rodriguez Acquired hypothyroid ism E03.9 ; B12 deficiency E53.8 ; Episodic migraine G43.909 ; History of CVA with residual deficit I69.30 ; Tobacco use disorder F17.200 ; History of drug abuse F19.11 and Anxiety with depression F41.8 [facility] [address] [address] 01/07/2023 Miroslava Rodriguez Acquired hypothyroid ism E03.9 ; B12 deficiency E53.8 ; Episodic migraine G43.909 ; Anxiety with depression F41.8 ; Essential (primary) hypertension I10 ; Mixed hyperlipidemia E78.2 ; Vitamin D deficiency E55.9 and Encounter for immunization Z23 [facility] [address] [address] 07/15/2023 Miroslava Rodriguez Pain, joint, knee, right M25.561 ; Routine medical exam Z00.00 ; Acquired hypothyroidism E03.9 ; B12 deficiency E53.8 ; Episodic migraine G43.909 ; Anxiety with depression F41.8 ; Essential (primary) hypertension I10 ; Mixed hyperlipidemia E78.2 and Vitamin D deficiency E55.9 ASSESSMENTS Encounter Date Diagnosis Assessment Notes Treatment Notes Treatment Clinical Notes 10/03/2022 B12 deficiency (ICD-10 - E53.8) 10/03/2022 [...] lab results _update flu vaccination as noted 07/15/2023 Routine medical exam (ICD-10 - Z00.00) 07/15/2023 Pain, joint, knee, right (ICD-10 - M25.561) Rec knee sleeve with activity, consider PT, suspect tendonitis 08/14/2023 History of nicotine dependence (ICD-10 - Z87.891) 08/14/2023 Breast cancer screening by mammogram (ICD-10 - Z12.31) 07/15/2023 Acquired hypothyroidism (ICD-10 - E03.9) overall stable chronic disease, continued FU with neurology encouraged will repeat monitoring labs as noted but no medication changes recommended unless indicated on lab results 01/07/2023 Episodic migraine (ICD-10 - G43.909) 10/03/2022 Episodic migraine (ICD-10 - G43.909) 01/07/2023 Anxiety with depression (ICD-10 - F41.8) 10/03/2022 History of CVA with residual deficit (ICD-10 - I69.30) 07/15/2023 B12 deficiency (ICD-10 - E53.8) continue replacement 07/15/2023 Episodic migraine (ICD-10 - G43.909) continue current regimen 10/03/2022 Tobacco use disorder (ICD-10 - F17.200) 01/07/2023 Essential (primary) hypertension (ICD-10 - I10) 01/07/2023 Mixed hyperlipidemia (ICD-10 - E78.2) 10/03/2022 History of drug abuse (ICD-10 - F19.11) 07/15/2023 Anxiety with depression (ICD-10 - F41.8) well controlled 01/07/2023 Vitamin D deficiency (ICD-10 - E55.9) 07/15/2023 Essential (primary) hypertension (ICD-10 - I10) continue current regimen, at goal 10/03/2022 Anxiety with depression (ICD-10 - F41.8) 01/07/2023 Encounter for immunization (ICD-10 - Z23) 07/15/2023 Mixed hyperlipidemia (ICD-10 - E78.2) 07/15/2023 Vitamin D deficiency (ICD-10 - E55.9) PLAN OF TREATMENT Pending Test Test Name Order Date Ultrasound : Abdomen 01/11/2015 Mammogram : Bilateral 10/31/2020 Mammogram : Bilateral 11/03/2018 H-CBC with AUTO DIFF 04/28/2014 H-VITAMIN B12 01/11/2015 H-VITAMIN B12 04/28/2014 H-CMP 04/28/2014 H-LIPID PANEL 04/28/2014 H-LIPID PANEL 01/11/2015 H-TSH 01/11/2015 H-TSH 04/28/2014 H-VIT D, 1,25-HYDROXY 01/11/2015 H-VIT D, 25-HYDROXY 04/28/2014 H-HELICOBACTER PYLORI IGM AB 12/14/2014 C-CBC 01/23/2016 C-CMP 01/23/2016 C-CMP 07/07/2016 C-LIPID PANEL 07/07/2016 C-LIPID PANEL 01/23/2016 C-TSH 01/23/2016 C-TSH 07/07/2016 C-FREE T4 11/23/2019 C-VITAMIN B12 01/23/2016 C-HGBA1C 11/29/2019 C-VITAMIN D, 25-HYDROXY 01/23/2016 M-Complete Blood Count Auto Diff 019 M-Complete Blood Count Auto Diff 024 M-Complete Blood Count Auto Diff 023 M-Complete Blood Count Auto Diff 022 M-Comprehensive Metabolic Panel 07/11/19 22 M-Comprehensive Metabolic Panel 04/26/19 21 M-Comprehensive Metabolic Panel 07/15/19 24 M-Comprehensive Metabolic Panel 01/08/20 23 M-Comprehensive Metabolic Panel 07/15/19 19 M-Hemoglobin A1C 04/25/2020 M-Lipid Panel 07/14/2018 M-Lipid Panel 07/10/2021 M-Lipid Panel 01/07/2023 M-Lipid Panel 07/15/2023 M-Free T4 (Free Thyroxine) 07/15/2023 M-Free T4 (Free Thyroxine) 12/19/2020 M-Free T4 (Free Thyroxine) 01/07/2023 M-Free T4 (Free Thyroxine) 07/10/2021 M-Thyroid Stimulating Hormone 07/10/2021 M-Thyroid Stimulating Hormone 04/25/2020 M-Thyroid Stimulating Hormone 01/07/2023 M-Thyroid Stimulating Hormone 07/15/2023 M-Thyroid Stimulating Hormone 07/14/2018 M-Vitamin B12 07/14/2018 M-Vitamin B12 07/15/2023 M-Vitamin B12 10/31/2020 M-Vitamin B12 01/07/2023 M-Vitamin D 25 Hydroxy 01/07/2023 M-Vitamin D 25 Hydroxy 07/10/2021 M-Vitamin D 25 Hydroxy 10/31/2020 M-Vitamin D 25 Hydroxy 04/25/2020 M-Vitamin D 25 Hydroxy 07/15/2023 M-Vitamin D 25 Hydroxy 07/14/2018 Future Test Test Name Order Date H-CMP 01/03/2013 H-LIPID PANEL 01/03/2013 H-TSH 01/03/2013 Insurance Providers Payer Name Payer Address Payer Phone Subscriber Number Group Number Insured Name Patient Relationship to Insured Coverage Start Date Coverage End Date [employer] [facility] [employer] [address] [address] [place] [address] [phone] [id number] Alayna Lee Self - patient is the [...] deficit - [facility]. [facility] Cell Carcinoma- DX by dermatologis t 2022 Surgical History Surgery Date(Month/Year) hysterectomy in-vetro x3 Appendectomy Dx lap Tubal ligation Left shoulder repair Right inguinal hernia Liposuction on chin Hospitalization History Reason Date(Month/Year) [facility] 04/2016 Surgeries as above childbirth
[2023-09-10 10:42] VITALS: BP 144/70; PULSE 86; RESP 16; TEMP 36.6; O2SAT 94
[2023-09-10] MEDS: LACTATED RINGERS 1000ML 1,000 ML 100 ML IV (10:52)
--- NOTE | 2023-09-10 11:27 | EXP.ANES.CKL ---
[facility] Disclaimer: The information contained in this section may have been updated after the patient was seen, as this information can be updated by other users. Medical History Carpal tunnel syndrome Surgical History (Updated 09/08/23 @ 13:53 by Edelmira Wheeler RN) H/O hernia repair Status post left shoulder hemiarthroplasty History of hysterectomy History of appendectomy Family History Other Cancer Diabetes Heart attack Social History (Updated 09/08/23 @ 13:29 by Edelmira Wheeler RN) Smoking Status: Current every day smoker tobacco type: cigarettes packs per day: 1 second hand exposure: No alcohol intake: never substance use type: former substance user and prescription drug current occupational status: retired Travel in the last 8 weeks: None household members: spouse housing: house marital status: current occupational exposures/hazards: No caffeine: Yes [facility] Anesthesia Checklist Patient Identification Patient Identification: Arm Band and Verbal (Name & ) Structural Data Admitted From: Home Planned Operative Procedure/s: Colonoscopy Consent for Planned Operative Procedure(s) Verified: Yes Verified Documents: Surgical Consent and History and Physical NPO Status Verified Time NPO: 07:00 Chart Verification Results Verified: CBC and BMP Additional verifications Patient : No Anesthesia Reactions: Yes (Severe PONV requiring hospital admission) Cardiovascular Assessment Heart Sounds: S1 & S2 Pulse Rhythm: Irregular Peripheral Edema: No Airway Assessment Mallampati Score:: Class II C-Spine Mobility Assessed: Yes (FROM) TMJ Mobility Assessed: Yes Dentition: Dentures-poor fitting (On top. intact natural teeth on bottom front. Nothing loose per pt.) Neurological Assessment Level of Consciousness: Awake, Alert, Appropriate and Follows Commands Hx Seizures: No Numbness or tingling in extremities: No Anesthesia Plan Anesthesia Risk discussed: Yes Anesthesia Plan: Verified ASA Class: III Anesthesia Type: MAC
[2023-09-10 11:50] VITALS: O2SAT 94
--- NOTE | 2023-09-10 12:07 | HMH.SCOPE ---
Procedure: Date: 09/10/23 Patient Date of :: 1965 Procedure Performed:: Screening colonoscopy Indications:: +Cologuard Performing Provider:: Sonia Mejias MD Referring Provider:: Miroslava Rodriguez APRN Sedation:: Propofol Procedure:: After placing the patient in the left lateral decubitus position, the colonoscopy was gently inserted into the rectum and under direct visualization advanced to the cecum which was identified by transillumination in the right lower quadrant, identification of the ileocecal valve, appendiceal orifice, and cecal strap. Color, texture, mucosa, and anatomy of the colon were carefully examined with the scope. Findings:: Anal canal: normal Rectum: normal Sigmoid colon: normal, small 0.5 cm polyp identified and removed with snare. Descending colon: normal without polyps or inflammatory changes Splenic flexure: normal Transverse colon: normal without polyps or inflammatory changes, area of scar noted in mid-transverse region Hepatic flexure: normal Ascending colon: normal without polyps or inflammatory changes Cecum: normal Terminal ileum: not visualized Impression: Sigmoid polyp, removed Specimens:: Polyp Recommendations:: Follow up examination in about FIVE years or so, sooner if clinically indicated. Complications:: None Estimated blood obtained (mL): 0 Colonoscopy Component Colonoscopy Component Was a colonoscopy performed during today's procedure?: Yes Recommended follow up colonoscopy of at least 10 years?: No If no, follow up colonoscopy recommended in ___ years?: Five Reason for not recommending >/= 10 yr follow-up interval?: Polyp
[2023-09-10 12:10] VITALS: BP 127/71; PULSE 78; RESP 18; TEMP 37.2; O2SAT 95
[2023-09-10 12:17] VITALS: BP 125/71; PULSE 77; RESP 18; O2SAT 97
[2023-09-10 12:28] VITALS: BP 121/83; PULSE 77; RESP 18; O2SAT 98
[2023-09-10 12:37] VITALS: BP 123/78; PULSE 77; RESP 18; O2SAT 98
== END 2023-09-10 12:40 | disposition home or self-care (01) ==
PROVIDERS: PCP Nurse Practitioner Family; Visit Provider Internal Medicine Gastroenterology
PROC: (CPT 45385; principal; 2023-09-10 11:30)
DX: R19.5 Other fecal abnormalities (principal); K63.5 Polyp of colon
CPT/HCPCS: 45385; J7120

== ENCOUNTER 2024-11-03 13:11 | Outpatient (CLI) | payer OTHER, SELFPAY ==
--- NOTE | 2024-11-03 13:14 | MM_ITS ---
PROCEDURE INFORMATION: Exam: MG Bilateral Screening 3D Mammography Exam date and time: 11/03/2024 1:16 PM Age: 59 years old Clinical indication: Screening examination TECHNIQUE: Imaging protocol: Bilateral Screening tomosynthesis and 2D mammography including computer-aided detection (CAD) when performed. COMPARISON: 1. MG MM DIG SCREENING MAMM BI W/CAD 08/26/2023 3:08 PM 2. MG MM DIG SCREENING MAMM BI W/CAD 05/22/2022 3:07 PM FINDINGS: MAMMOGRAPHY: Breast composition: There are scattered areas of fibroglandular density. Mass: No suspicious masses. Architectural distortion: None. Calcifications: No suspicious calcifications. Asymmetric density: None. Skin thickening: None. Axillary adenopathy: None. IMPRESSION: No mammographic evidence of malignancy. Annual screening is recommended unless otherwise clinically indicated. ASSESSMENT: BI-RADS Category 1: Negative.
--- NOTE | 2024-11-03 13:15 | CT_ITS ---
FINAL REPORT TECHNIQUE: Axial CT without IV contrast administration using low dose protocol. This study was performed with techniques to keep radiation doses as low as reasonably achievable, (ALARA). Individualized dose reduction techniques using automated exposure control or adjustment of mA and/or kV according to the patient's size were employed. CLINICAL HISTORY: SCREENING 02/24 xx 32 years COMPARISON: 08/26/2023 FINDINGS: CT CHEST LOW DOSE SCREENING HISTORY: Screening exam for lung cancer. 15.5-pack-year history. DOSE: CTDI vol: 2.90 mGy, DLP: 99.25 mGy*cm No acute lung disease is present. No pulmonary lesions are seen suspicious for neoplasm. No pleural or pericardial effusion is seen. No adenopathy or mass lesion is present. The upper abdomen shows a left adrenal mass measuring 15 mm, probably an adenoma. IMPRESSION: No evidence of primary lung neoplasm. LUNG RADS CATEGORY 1 RECOMMENDATION: 12 month LDCT follow up Reviewed, Interpreted and Dictated by Jovanny Crook MD Transcribed by Odessa Mclaughlin Authenticated and [facility]
== END 2024-11-03 23:59 | disposition home or self-care (01) ==
LOC: RAD 13:11
PROVIDERS: PCP Nurse Practitioner Family; Visit Provider Nurse Practitioner Family
DX: Z12.31 Encounter for screening mammogram for malignant neoplasm of breast (principal); R92.323 Mammographic fibroglandular density, bilateral breasts; Z12.2 Encounter for screening for malignant neoplasm of respiratory organs; Z87.891 Personal history of nicotine dependence
CPT/HCPCS: 71271; 77063; 77067